=== PATIENT | female | born 1985 | race Caucasian/White ===

== ENCOUNTER 2019-12-30 17:48 | Emergency (ER) | payer OTHER, SELFPAY ==
--- NOTE | ~2019-12-30 | XR_ITS ---
EXAMINATION: XR chest 2V EXAM DATE: 12/30/2019 18:26 INDICATION: Cough for one week. TECHNIQUE: Frontal and lateral projections of the chest obtained and reviewed. Comparison is made to prior examination from 06/09/2018. FINDINGS: Small patchy regions of ill-defined right-sided acute airspace disease, could be acute vir al or bacterial pneumonia. Please clinically correlate. Left lung appears clear. No confluent consoli dation, pneumothorax or pleural effusion suspected. Cardiomediastinal silhouette is normal. IMPRESSION: 1. Patchy small regions of right-sided acute infectious process. Reviewed, dictated and finalized at location A.
[2019-12-30 18:01] VITALS: BP 147/95; PULSE 92; RESP 16; TEMP 36.6; O2SAT 100
--- NOTE | 2019-12-30 18:14 | ED.UPPEXIN ---
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 Has taken [employer] D with little effect. Here for covid test order and evaluation Related Data Home Medications Medication Instructions Recorded Confirmed albuterol sulfate [ProAir 2 inh INHALATION Q4-6H 12/30/19 12/30/19 RespiClick] atorvastatin 10 mg PO DAILY 12/30/19 12/30/19 cholecalciferol (vitamin D3) 325 mcg PO WEEKLY 12/30/19 12/30/19 [Maximum D3] sertraline 100 mg PO DAILY 12/30/19 12/30/19 Allergies Allergy/AdvReac Type Severity Reaction Status Date / Time ciprofloxacin Allergy Severe Anaphylactic Verified 01/31/19 08:35 Shock cefaclor Allergy Unknown Rash Verified 12/30/19 18:14 CIPROFLOXACIN HCL Allergy Severe Anaphylactic Uncoded 01/31/19 08:35 Shock Review of Systems Review of Systems: Narrative: CONSTITUTIONAL: Denies fever, chills, sweats. EYES: Denies visual changes, redness, discharge. ENT: Denies rhinorrhea, has congestion, sore throat, otalgia. CARDIOVASCULAR: Denies chest pain, palpitations, edema. RESPIRATORY: Has mild dyspnea, no wheezing, has cough GASTROINTESTINAL: Denies abdominal pain, nausea, vomiting, diarrhea. GENITOURINARY: Denies dysuria, hematuria, abnormal discharge SKIN: Denies rash or itching. NEUROLOGIC: Denies numbness, or focal weakness. PSYCHIATRIC: Denies anxiety or depression. PMFSH Family History Family History Other High cholesterol Social History Social History (Updated 12/30/19 @ 18:29 by Mary Pena CNP) Smoking status: Never smoker Alcohol intake: current Comments My nurse Exam Narrative: Exam Narrative: GENERAL: This is a well-nourished, well-developed patient, in mild distress. HEAD: normocephalic, atraumatic. EYES: Sclera clear/white. Vision is grossly intact. EARS: External ears normal, Hearing grossly intact. NOSE: External nose normal with nasal discharge, nares with redness, has rhinorrhea. THROAT: Mucous membranes moist, posterior pharynx erythema NECK: Neck supple, CARDIOVASCULAR: Regular rate and rhythm without murmurs, gallops, or rubs. RESPIRATORY: Clear to auscultation. Breath sounds equal bilaterally. No wheezes, rales, or rhonchi. GASTROINTESTINAL: Abdomen soft, SKIN: warm, intact with no suspicious lesions or rash, good texture and turgor. NEURO: awake, alert, and oriented to person, place and time. There were no obvious focal neurologic abnormalities. Steady gait EXTREMITIES: Normal range of motion. BACK: Nontender without deformity Course Course Emergency Course: Chest x-ray done-results patchy small regions of right-sided acute infectious process-may be viral or bacterial Cover test ordered Started on prednisone and cough syrup, continues to have cough at the Patient should not return to work until results are known of her cover test Vital Signs Vital signs: Vital Signs Temperature 97.8 F 12/30/19 18:01 Pulse Rate 92 12/30/19 18:01 Respiratory Rate 16 12/30/19 18:01 Blood Pressure 147/95 H 12/30/19 18:01 Pulse Oximetry 100 12/30/19 18:01 Temperature 97.8 F 12/30/19 18:01 Pulse Rate 92 12/30/19 18:01 Respiratory Rate 16 12/30/19 18:01 Blood Pressure 147/95 H 12/30/19 18:01 Pulse Oximetry 100 12/30/19 18:01 MDM - Extremity Injury (Upper) Differential Diagnosis Differential diagnosis: Likely other (Upper respiratory infection versus COVID versus sinusitis versus seasonal allergies) Critical Care Time Critical Care Time Critical Care Time: No Dis
== END 2019-12-30 18:50 | disposition home or self-care (01) ==
PROVIDERS: Emergency Provider Nurse Practitioner
DX: J06.9 Acute upper respiratory infection, unspecified (principal); Z20.828 Contact with and (suspected) exposure to other viral communicable diseases
CPT/HCPCS: 71046; 99213; G0463

== ENCOUNTER 2024-07-09 14:00 | Emergency (ER) | payer OTHER, SELFPAY ==
--- NOTE | 2024-07-09 14:05 | ED_ITS ---
HPI - Nausea/Vomiting/Diarrhea General Chief complaint: Nausea/Vomiting/Diarrhea Stated complaint: Vomiting/Fever Time Seen by Provider: 07/09/24 14:35 Source: patient and RN notes reviewed Mode of arrival: ambulatory Limitations: no limitations History of Present Illness HPI Narrative: 38-year-old female presents with concern for vomiting and diarrhea. Reports symptoms started yesterday with vomiting, and she did not have vomiting today. She reports she has had diarrhea today. She denies abdominal pain. Reports fever last night and today. MD elicited complaint: nausea, vomiting and diarrhea Related Data Home Medications ?Medication ?Instructions ?Recorded ?Confirmed ?Last Taken ?Type albuterol sulfate 90 mcg/actuation 2 inh inhalation Q4-6H sob 12/30/19 12/30/19 Unknown History breath activated powder inhaler (ProAir RespiClick) atorvastatin 10 mg tablet 10 mg PO DAILY 12/30/19 12/30/19 Unknown History cholecalciferol (vitamin D3) 325 325 mcg PO WEEKLY 12/30/19 12/30/19 Unknown History mcg (13,000 unit) capsule (Maximum D3) sertraline 100 mg tablet 100 mg PO DAILY 12/30/19 12/30/19 Unknown History Allergies Allergy/AdvReac Type Severity Reaction Status Date / Time ciprofloxacin Allergy Severe Anaphylactic Verified 01/31/19 08:35 Shock cefaclor Allergy Unknown Rash Verified 12/30/19 18:14 CIPROFLOXACIN HCL Allergy Severe Anaphylactic Uncoded 01/31/19 08:35 Shock Review of Systems Review of Systems: CONSTITUTIONAL: Reports malaise, chills, fever. ENT: Denies rhinorrhea, congestion, sinus pain, otalgia or sore throat. CARDIOVASCULAR: Denies chest pain, palpitations, or edema. RESPIRATORY: Denies cough or dyspnea. GASTROINTESTINAL: Denies abdominal pain. Reports nausea, vomiting, diarrhea. Denies bloody, or mucous stools. GENITOURINARY: Denies dysuria or hematuria. MUSCULOSKELETAL: Denies myalgia. NEUROLOGIC: Denies headache. All systems reviewed & are unremarkable except as noted in HPI and below PMFSH Family History Family History Other High cholesterol Social History Social History (Updated 12/30/19 @ 18:29 by Mary Pena, PROPERTY INSURANCE CLAIMS EXAMINER) Smoking status: Never smoker Alcohol intake: current Comments At time of signature, agree with nursing past medical, surgical, social and family history. There is no relevant family history pertinent to the presenting complaint Exam Narrative: GENERAL: Well-appearing, well-nourished, and in no acute distress. HEAD: Normocephalic, atraumatic. EYES: PERRLA, conjunctivae clear, and EOMI. ENT: Nares clear, turbinates pink, no rhinorrhea or epistaxis. Mucous membranes moist. Oropharynx without edema, erythema, or lesions. Tonsils not enlarged and without exudate. NECK: Supple. No lymphadenopathy CHEST: Speaks in full sentences. No respiratory distress. HEART: Regular rate and rhythm. ABDOMEN: Soft, flat, nondistended, nontender. No guarding, rebound tenderness, or rigidity. No pulsatile masses. Bowel sounds present in all four quadrants. SKIN: Warm, dry, no rash. NEURO: Alert and oriented x3. PSYCH: Normal mood and affect Course Course Emergency Course: Patient is aware of diagnosis, understands and agrees to treatment plan. Anticipatory guidance given. Patient agrees to follow-up as directed and is a cotto of reasons to seek care at the emergency department. Portions of this record may have been created with voice recognition software Level of Care: Express Care Visit Vital Signs Vital signs: Reviewed. MDM - Nausea/Vomiting/Diarrhea MDM Narrative Medical decision making narrative: No evidence of pancreatitis, AAA, cholecystitis, choledocholithiasis, cholangitis, mesenteric ischemia, small bowel obstruction, diverticulitis, colitis, appendicitis, or pelvic etiology such as ovarian/testicular torsion, TOA, or ectopic . Patient has no history of peptic ulcer, H. pylori, chronic aspirin NSAID or corticosteroid use, chronic alcohol use, no history of inflammatory bowel disease, no history of active abdominal infection or malignancy. Patient has no history of hernia or intra-abdominal surgeries, patient denies absence of flatus, constipation, melena, hematemesis. Patient denies post-prandial pain. No pain-out of proportion. Exam findings show no acute concerns or changes; patient is non-toxic appearing and is in no distress. Patient is appropriate for outpatient treatment and follow-up. Critical Care Time Critical Care Time Critical Care Time: No Discharge Plan Discharge Clinical Impression: Diarrhea Patient Disposition: Home, Self-Care Condition: Stable Instructions: Acute Diarrhea (ED) Additional Instructions: Stay hydrated. Take small sips of fluid containing electrolytes frequently. You should go to the hospital if you experience return of persistent nausea and vomiting that does not resolve and does not allow you to tolerate any food or fluids, persistent fevers for greater than 2-3 more days, increasing abdominal pain that persists despite medications, persistent diarrhea, dizziness, syncope (fainting), or for any other concerns. Patient Language: Greek Prescriptions: New ondansetron 4 mg tablet,disintegrating 4 mg PO Q6H PRN (Reason: nausea and vomiting) Qty: 4 0RF No Action atorvastatin 10 mg tablet 10 mg PO DAILY sertraline 100 mg tablet 100 mg PO DAILY ProAir RespiClick 90 mcg/actuation aerosol powdr breath activated 2 inh INHALATION Q4-6H Maximum D3 325 mcg (13,000 unit) capsule 325 mcg PO WEEKLY prednisone 20 mg tablet 40 mg PO DAILY Qty: 10 0RF codeine-guaifenesin 7.5-225 mg/5 mL liquid 7.5 ml PO Q4-6H PRN (Reason: cough) Qty: 120 0RF azithromycin [Zithromax] 250 mg tablet See Rx Instructions .ROUTE .COMPLEX Qty: 6 0RF Rx Instructions: take 500 mg today (day 1), then 250 mg for 4 days (days 2-5) Follow-up/Referrals: Bushra,Janet Gates APRN [Primary Care Provider] - Stand Alone Forms: Work/School Release IP Time of Disposition: 14:40
[2024-07-09 14:06] VITALS: BP 142/107; PULSE 79; RESP 20; TEMP 35.7; O2SAT 100
--- OUTSIDE RECORDS SUMMARY | 2024-07-09 14:53 | XMS_ITS | Clinical Summary ---
Author Organization [facility] Address [address] [place] [address] Phone Care Team Providers Care Feedmobile Driver Name Role Phone Unavailable Primary Care Provider Unavailabl e Allergies Active Allergy Reactions Criticality Noted Date Comments Cefaclor Other (see Comments) 05/12/2008 Ciprofloxacin Other (see Comments) 05/12/2008 Throat start to close Medications sertraline (ZOLOFT) 100 MG Tablet Take 100 mg by mouth daily. 1 Active atorvastatin (LIPITOR) 10 MG Tablet atorvastatin 10 mg tablet take 1 tablet by oral route every day 0 Active levonorgestrel 20 MCG/24HR IUD Mirena 20 mcg/24 hours (6 yrs) 52 mg intrauterine device Take by intrauterine route. Active Active Problems Problem Noted Date Diagnosed Date Major depressive disorder, r ecurrent episode, mild with anxious distress 03/08/2018 Family History Medical History Relation Name Comments High Cholesterol Father Hypertension Father High Cholesterol Mother Hypertension Mother Relation Name Status Comments Father Mother Alive Social History Tobacco Use Types Packs/Day Years Used Date Smoking Tobacco: Never Smokeless Tobacco: Never Alcohol Use Standard Drinks/Week Comments Yes 0 (1 standard drink = 0.6 oz pur e alcohol) occasional Comments Unknown Sex and Gender Information Value Date Recorded Sex Assigned at Not on file Legal Sex Female 7:52 PM CDT Gender Identity Not on file Sexual Orientation Not on file Last Filed Vital Signs Vital Sign Reading Time Taken Comments Blood Pressure 124/88 06/28/2020 3:12 PM DIRECTOR OF PLANNING Pulse 77 06/28/2020 3:12 PM DIRECTOR OF PLANNING Temperature 37.1 C (98.7 F) 06/28/2020 3:12 PM DIRECTOR OF PLANNING Respiratory Rate 18 06/28/2020 3:12 PM DIRECTOR OF PLANNING Oxygen Saturation 98% 06/28/2020 3:12 PM DIRECTOR OF PLANNING Inhaled Oxygen Concentration - - Weight 127 kg (280 lb) 06/28/2020 3:12 PM DIRECTOR OF PLANNING Height 160 cm (5' 3 ) 06/28/2020 3:12 PM DIRECTOR OF PLANNING Body Mass Index 49.6 06/28/2020 3:12 PM DIRECTOR OF PLANNING Plan of Treatment Health Maintenance Due Date Last Done Comments Hepatitis C Virus (HCV) Screening 1985 Hepatitis B Immunization (1 of 3 - 19+ 3-dose series) 08/17/2006 Pap Smear 08/17/2008 Cervical Cancer Screening (CCS) 08/17/2017 HPV/Cotest 08/17/2017 Influenza Immunization (#1) 01/28/202402/26, 02/14/2019, 03/14/2018 SARS-COV-2 Immunization ( season) 2024 07/16/2020, 06/25/2020 Respiratory Syncytial Virus (RSV) Immunization (Adult) (1 - 1-dose 75+ series) 08/17/2062 DTaP/Tdap/Td Immunization Discontinued 2014, 07/27/2012, 05/29/2012 TdaP Immunization Completed 11/09/2014 Meningococcal Immunization (ACWY) Aged Out No longer eligible based on patient's age to complete this topic Pneumococcal Immunization Combined Aged Out No longer eligible based on patient's age to complete this topic Rotavirus Immunization Aged Out No lo nger eligible based on patient's age to complete this topic Insurance [facility]
--- OUTSIDE RECORDS SUMMARY | 2024-07-09 14:53 | XMS_ITS | Encounter Summary ---
Author Organization [facility] Address [address] [place] [address] Care Team Providers Care Mopper Name Role Phone Unavailable Primary Care Provider Unavailabl e Encounter Details Date Type Department Care Team (Late st Contact Info) Description 11/25/2020 Abstract [facility] Non Integrated Provider [address] [address] [place] [address] Chencho Kaufman MD [address] [place] [address] Social History Tobacco Use Types Packs/Day Years Used Date Smoking Tobacco: Never Smokeless Tobacco: Never Alcohol Use Standard Drinks/Week Comments No 0 (1 standard drink = 0.6 oz pur e alcohol) Comments No Sex and Gender Information Value Date Recorded Sex Assigned at Not on file Legal Sex Female 5:39 AM 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
--- OUTSIDE RECORDS SUMMARY | 2024-07-09 14:53 | XMS_ITS | Clinical Summary ---
Author Organization [facility] Address [address] [place] [address] Care Team Providers Care Leverman Name Role Phone Tam Freedman MD Primary Care Provider Source Comments [facility],non-owned Affiliates and Associated Physician Practices is amultiple site organization consisting of ambulatory clinics and hospital sitesin [place], [place], [place] and [place]. This disclosure is being madepursuant to the Care Everywhere program and may not contain all information available regarding this patient. Last updated 18.[facility] Allergies Active Allergy Reactions Criticality Noted Date Comments Cefaclor 09/21/2016 Ciprofloxacin 09/21/2016 Medications * Be aware that medications may not be up to date on this document. Alwaysverify current medications with the patient. Medication Sig Dispensed Refills Start Date End Date Status sertraline (ZOLOFT) 100 MG tablet Take 100 mg by mouth once daily Active levonorgestrel (MIRENA, 52 MG,) 20 MCG/24HR IUD 1 device by Intrauterine route as directed Active ALBUTEROL IN Active Immunizations Name Administration Dates Next Due Covid [employer] primary monoval ent 12+ yr 0.3mL Purple cap 07/16/2020,06/25/2020 Social History Tobacco Use Types Packs/Day Years Used Date Smoking Tobacco: Never Smokeless Tobacco: Never Sex and Gender Information Value Date Recorded Sex Assigned at Not on file Gender Identity Not on file Sexual Orientation Not on file Last Filed Vital Signs Vital Sign Reading Time Taken Comments Blood Pressure 126/78 09/26/2018 10:31 AM CDT Pulse 78 09/26/2018 10:31 AM CDT Temperature 36.8 C (98.2 F) 09/26/2018 10:31 AM CDT Respiratory Rate 19 09/26/2018 10:31 AM CDT Oxygen Saturation 98% 09/26/2018 10:31 AM CDT Inhaled Oxygen Concentration - - Weight 117.9 kg (260 lb) 09/26/2018 10:31 AM CDT Height 160 cm (5' 3 ) 09/26/2018 10:31 AM CDT Body Mass Index 46.06 09/26/2018 10:31 AM CDT Plan of Treatment Health Maintenance Due Date Last Done Comments PAP SMEAR 1987 HIV SCREENING 08/17/2002 HEPATITIS C SCREENING 08/13/2005 DTAP/TDAP/TD VACCINES (1 - Tdap) 08/17/2006 HEPATITIS B VACCINE (1 of 3 - 19+ 3-dose series) 08/17/2006 COVID-19 VACCINE (3 - 2023-2 5 season) 2024 07/16/2020, 06/25/2020 INFLUENZA VACCINE (#1) 2024 0, 02/14/2019, 02/27/2012 DEPRESSION SCREENING 05/29/2024 ZOSTER VACCINE (1 of 2) 08/17/2037 HIB VACCINE Aged Out No longer eligi ble based on patient's age to complete this topic HPV VACCINE Aged Out No longer eligi ble based on patient's age to complete this topic MENINGOCOCCAL (Group B) VACCINE Aged Out No longer eligible b ased on patient's age to complete this topic MENINGOCOCCAL VACCINE Aged Out No andrea kacie eligible based on patient's age to complete this topic PNEUMOCOCCAL VACCINE Aged Out No long er eligible based on patient's age to complete this topic Care Teams Leverman Relationship Specialty Start Date End Date Tam Freedman MD [address] [place] [address] PCP - General Internal Medicine 09/21/16
--- OUTSIDE RECORDS SUMMARY | 2024-07-09 14:53 | XMS_ITS | Referral Summary ---
Author Organization [facility] Address [address] [place] [address] Care Team Providers Care Software Systems Analyst Name Role Phone Tam Freedman MD Primary Care Provider [phone] Source Comments [facility],non-owned Affiliates and Associated Physician Practices is amultiple site organization consisting of ambulatory clinics and hospital sitesin [place], [place], [place] and [place]. This disclosure is being madepursuant to the Care Everywhere program and may not contain all information available regarding this patient. Last updated 18.[facility] Allergies Active Allergy Reactions Criticality Noted Date [...] Immunizations Name Administration Dates Next Due Covid [employer] primary monoval ent 12+ yr 0.3mL Purple [...] 09/26/2018 10:31 AM CDT Plan of Treatment Not on file Care Teams Software Systems Analyst Relationship Specialty Start Date End Date Tam Freedman MD [address] [place] [address] PCP - General Internal Medicine 09/21/16
--- OUTSIDE RECORDS SUMMARY | 2024-07-09 14:53 | XMS_ITS | Clinical Summary ---
Author Organization [facility] Address [address] [place] [address] Care Team Providers Care Manager Corporate Name Role Phone Unavailable Primary Care Provider Unavailabl e Allergies Active Allergy Reactions Criticality Noted Date Comments Cefaclor Rash Medium 05/12/2008 Ciprofloxacin Other (See Comments) High 05/12/2008 Throat start to close Medications albuterol (PROAIR HFA) 90 mcg/Actuation Inhalation HFAA Take 2 Puffs by inhalation every 6 hours as needed for Shortness of Breath. 1 Inhaler 1 1 Active sertraline (ZOLOFT) 100 mg tablet Take 100 mg by mouth daily at bedtime. Active atorvastatin calcium (ATORVASTATIN ORAL) Take 10 mg by mouth daily. Active cetirizine (ZyrTEC) 10 mg tablet Take 10 mg by mouth daily. Active HYDROcodone-omar taminophen (HYCET) 7.5-325 mg/15 mL SolutionIndicat ions:Morbid obesity (CMS/HCC) Take 15 mL by mouth every 6 hours as needed for severe pain. Max Daily Amount: 60 mL 300 mL 12/22/2020 11:01 AM CDT 1 Active ondansetron (Zofran ODT) 4 mg Tablet, Rapid Dissolve Place 1 Tablet (4 mg) under tongue every 6 hours as needed for Nausea. 28 Tablet 12/22/2020 11:01 AM CDT 1 Active Active Problems Patient Care Coordination No te Formatting of this note migh t be different from the original. Prev visit done 05/27/11 Problem Noted Date Diagnosed Date Adjustment reaction 05/12/2008 Immunizations Immunization Administration Dates Next Due (ADACEL/BOOSTRIX)(10 YR UP) TDAP VACCINE, 0.5ML, IM 07/27/2012,05/29/2012,05/12/2008 (PNEUMOVAX 23)(50 YRS UP) PN EUMOCOCCAL POLYSACCHARIDE (PPV23) 0.5 ML, IM 05/12/2008 INFLUENZA VACCINE QUADRIVALE NT 6 MOS UP PF IM 02/14/2019 Influenza Seasonal Unspecifi ed Formulation IM 03/11/2020,02/27/2012 Skin Test TB 10/13/2008 Family History Medical History Relation Name Comments Depression Father High Cholesterol Father Hypertension Father Depression Mother High Cholesterol Mother Hypertension Mother Relation Name Status Comments Brother Alive Father Alive Mother Alive Sister Alive Social History Tobacco Use Types Packs/Day Years Used Date Smoking Tobacco: Never Smokeless Tobacco: Never Alcohol Use Standard Drinks/Week Comments Yes 0 (1 standard drink = 0.6 oz pur e alcohol) SOCIALLY ON WEEKENDS Comments Unknown Sex and Gender Information Value Date Recorded Sex Assigned at Not on file Legal Sex Female 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 Gender Identity Not on file Sexual Orientation Not on file 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 on file 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 on file 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 Not on file Not on file Not on file Last Filed Vital Signs Vital Sign Reading Time Taken Comments Blood Pressure 156/99 12/22/2020 8:31 AM CDT Pulse 60 12/22/2020 3:30 AM CDT Temperature 37 C (98.6 F) 12/22/2020 8:31 AM CDT Respiratory Rate 18 12/22/2020 8:31 AM CDT Oxygen Saturation 97% 12/22/2020 8:31 AM CDT Inhaled Oxygen Concentration - - Weight 134.9 kg (297 lb 6.4 oz) 12/22/2020 6:00 AM CDT Height 162.6 cm (5' 4 ) 12/21/2020 3:22 PM CDT Body Mass Index 51.05 12/21/2020 3:22 PM CDT Plan of Treatment Health Maintenance Due Date Last Done Comments HEPATITIS B VACCINES (1 of 3 - 19+ 3-dose series) 08/17/2006 CERVICAL CANCER SCREENING 08/17/20172010, 07/28/2007 DTAP/TDAP/TD VACCINES (4 - Td or Tdap) 07/27/2022 07/27/2012, 05/29/2012, 05/12/2008 INFLUENZA VACCINE (#1) 2023 , 02/14/2019, 02/27/2012 COVID-19 Vaccine ( season) 2024 07/16/2020, 06/25/2020 HPV VACCINES Aged Out No longer eligi ble based on patient's age to complete this topic Medical Devices Implanted Type Area Solvent Plant Operator Device Identifier Shelf Expiration Date Model / Serial / Lot Seamguard Endogia 60 [id number] - [id number] Implanted:Qty : 2 on 12/21/2020 by Chencho Kaufman MD at [facility] Biological N/A: Stomach [employer] 07/07/2023 [id number] / / [id number] Seamguard Endogia 60 [id number] [id number] - [id number] Implanted:Qty : 2 on 12/21/2020 by Chencho Kaufman MD at [facility] Biological N/A: Stomach [employer] 08/02/2023 [id number] / / [id number] Iud Description:MIRENA Insurance [facility] PREFERRED RX [employer] Commercial Advance Directives For more information, please contact: [phone] * Full Code (Latest Code Status on File) Date Activated Date Inactivated Comments 12/21/2020 10:47 AM 12/22/2020 4:02 PM
--- OUTSIDE RECORDS SUMMARY | 2024-07-09 14:53 | XMS_ITS | Referral Summary ---
Author Organization [facility] Address [address] [place] [address] Care Team Providers Care Manager Of Compliance Name Role Phone Harrison Chang MD Unavailable [phone]- [phone] Janet Tomlinson NP Primary Care Provider [phone] Encounters Date Type Department Care Team Description 07/05/2024 11:30 AM AUDITING CODER Office Visit [facility] Primary Care at [address] [address] Janet Tomlinson NP Attention deficit (Primary Dx); Class 3 severe obesity due to excess calories with serious comorbidity and body mass index (BMI) of 40.0 to 44.9 in adult (HCC) from Last 3 Months Allergies Active Allergy Reactions Criticality Noted Date Comments Cefaclor Ciprofloxacin Medications levonorgestreL (Mirena) IUD Active levalbuterol (XOPENEX HFA) 45 mcg/actuation inhaler Inhale 1-2 puffs every 6 (six) hours as needed for wheezing 1 each 1 2 Active doxycycline 100 mg tablet TAKE 1 TABLET BY MOUTH DAILY AT DINNER WITH FOOD 4 Active spironolactone (ALDACTONE) 100 mg tablet TAKE 1 TABLET BY MOUTH EVERY DAY FOR ACNE 4 Active atorvastatin (LIPITOR) 10 mg tabletIndications: Other hyperlipidemia Take 1 tablet (10 mg total) by mouth daily 90 tablet 1 4 Active sertraline (ZOLOFT) 100 mg tablet Take 1 tablet (100 mg total) by mouth daily 90 tablet 1 4 Active Maximum D3 325 mcg (13,000 unit) capsule Take 1 capsule by mouth once a week 12 capsule 3 4 Active busPIRone (BUSPAR) 15 mg tablet TAKE 1 TABLET(15 MG) BY MOUTH TWICE DAILY 200 tablet 4 Active buPROPion (WELLBUTRIN) 75 mg tablet Take 1 tablet (75 mg total) by mouth 2 (two) times a day 180 tablet 1 5 Active methylphenidate ER (CONCERTA) 36 mg CR tabletIndications: Attention-Deficit Hyperactivity Disorder Take 1 tablet (36 mg total) by mouth every morning 30 tablet 5 Active phentermine 15 mg capsule Take 1 capsule (15 mg total) by mouth every morning 30 capsule 5 025 Active methylphenidate ER (CONCERTA) 36 mg CR tabletIndications: Attention-Deficit Hyperactivity Disorder Take 1 tablet (36 mg total) by mouth every morning 30 tablet 4 025 Discontin ued(Reord er) Active Problems Problem Noted Date Diagnosed Date Attention deficit 06/06/2023 Assessment & Plan (07/05/2024 11:58 AM AUDITING CODER): Doing well on Concerta 36 mg daily No side effects noted. Assessment & Plan (01/26/2024 11:58 AM CDT): Doing well on Concerta 36 mg daily No side effects noted. Assessment & Plan (07/19/2023 4:00 PM AUDITING CODER): Has noticed improvement on the Concerta, not at goal but reassuring that anxiety and attention have improved. Denies adverse effects. Will increase the Concerta to 36 mg daily. Assessment & Plan (06/06/2023 3:31 PM AUDITING CODER): CAARS screen has been performed, reviewed patient's counselor input and after discussion with patient, will trial Concerta for highly suspected ADD that is contributing to worsening anxiety/depression. Education provided and follow up in 4 weeks. Moderate episode of recurrent major depressive d isorder 02/14/2022 Assessment & Plan (08/26/2022 1:33 PM CDT): Much improvement noted with the addition of Wellbutrin. Able to stay on task better, anxiety vs ADHD. Initial screening positive for possible ADHD, will have pt fill out CAARS screen. However, the Wellbutrin has helped with anxiety and focus so will stay at current dose and medication despite screening score. Assessment & Plan (07/12/2022 4:05 PM AUDITING CODER): Patient concerned she may have ADHD, with increased stressors and anxiety/depression revolving around her current home situation, this could be contributing to decreased concentration/being able to focus on tasks. Discussed ADHD screening and will have patient complete at our follow up. In the meantime, will trial Wellbutrin for overall mood adjunct with her Sertraline and Buspar, can also help with ADHD if present. Assessment & Plan (02/14/2022 4:27 PM CDT): Patient reiterated no suicidal thoughts at this time; take medication as directed; contact 911 and go to the ER if becomes suicidal; discussed side effects of medication with patient; encouraged healthy diet and exericise; encouraged patient to see a counselor HPI: Condition is not at/near goal just from A&P: Discussed/ordered labs, encouraged healthy, low carbohydrate lifestyle and at least 150min/week of exercise, continue on sertraline 100mg daily, Add in buspirone 10mg twice daily. Take in the am and before bed. F/u with Janet Tomlinson NP in [place] in 6-8 wks. Anxiety 02/14/2022 Assessment & Plan (06/06/2023 3:31 PM AUDITING CODER): CAARS screen has been performed, reviewed patient's counselor input and after discussion with patient, will trial Concerta for highly suspected ADD that is contributing to worsening anxiety/depression. Education provided and follow up in 4 weeks. Assessment & Plan (08/26/2022 1:34 PM CDT): Much improvement noted with the addition of Wellbutrin. Able to stay on task better, anxiety vs ADHD. Initial screening positive for possible ADHD, will have pt fill out CAARS screen. However, the Wellbutrin has helped with anxiety and focus so will stay at current dose and medication despite screening score. Assessment & Plan (07/12/2022 4:06 PM AUDITING CODER): Patient concerned she may have ADHD, with increased stressors and anxiety/depression revolving around her current home situation, this could be contributing to decreased concentration/being able to focus on tasks. Discussed ADHD screening and will have patient complete at our follow up. In the meantime, will trial Wellbutrin for overall mood adjunct with her Sertraline and Buspar, can also help with ADHD if present. Assessment & Plan (03/30/2022 11:53 PM CDT): Has improved, not at goal though. Will increase Buspar to 15 mg BID, re-evaluate in 4 weeks, sooner if needed. Assessment & Plan (02/14/2022 4:27 PM CDT): Patient reiterated no suicidal thoughts at this time; take medication as directed; contact 911 and go to the ER if becomes suicidal; discussed side effects of medication with patient; encouraged healthy diet and exericise; encouraged patient to see a counselor HPI: Condition is not at/near goal just from A&P: Discussed/ordered labs, encouraged healthy, low carbohydrate lifestyle and at least 150min/week of exercise, continue on sertraline 100mg daily, Add in buspirone 10mg twice daily. Take in the am and before bed. F/u with Janet Tomlinson NP in [place] in 6-8 wks. Vitamin D deficiency 03/29/2019 Assessment & Plan (06/21/2019 11:22 AM AUDITING CODER): Discussed/ordered labs, Condition is stable, encouraged healthy, low carbohydrate lifestyle and at least 150min/week of exercise, continue on cholecalciferol 10,000 units weekly Anal high risk human papillomavirus (HPV) DNA te st positive 03/13/2019 Overview (07/05/2024): Anal high risk human papillomavirus (HPV) DNA test positive;Recorded Elsewhere: No Location: [facility] Source: EHR Chronic: N Practice ID: [id number] Billable Time: 09:45:09 AM Other hyperlipidemia 02/14/2019 Assessment & Plan (01/26/2024 11:59 AM CDT): Continues Atorvastatin 10 mg daily, no side effects reported. Updated labs ordered. Assessment & Plan (06/06/2023 3:32 PM AUDITING CODER): Continues Atorvastatin 10 mg daily, no side effects reported. Updated labs ordered. Assessment & Plan (06/21/2019 11:36 AM AUDITING CODER): Discussed/ordered labs, Condition is improving, encouraged healthy, low carbohydrate lifestyle and at least 150min/week of exercise, continue on atorvastatin 10mg daily Assessment & Plan (02/14/2019 9:14 AM CDT): Patient stated she has had high cholesterol since age 20. She hasnt taken anything since 2013. Pt had labs drawn yesterday from Dr. Chang, we will see if they can add lipid panel. They were unable to add lab, pt to have lab drawn today. Class 3 severe obesity due t o excess calories with serious comorbidity and body mass index (BMI) of 40.0 to 44.9 in adult 02/14/2019 Assessment & Plan (07/05/2024 11:59 AM AUDITING CODER): Patient interested in Phentermine. Discussed we can do this but have to monitor for symptoms with the Concerta on board. Education provided, pt will update me in 1 month with BP/pulse, etc. Starting 15 mg. Assessment & Plan (08/26/2022 1:34 PM CDT): Has lost weight since previous visit Healthy, low carbohydrate lifestyle and exercise for 150min/week recommended Assessment & Plan (07/12/2022 4:06 PM AUDITING CODER): Healthy, low carbohydrate lifestyle and exercise for 150min/week recommended Assessment & Plan (03/30/2022 11:52 PM CDT): Patient had gastric sleeve with Dr. Kaufman 01/2021, down ~100 lbs. Had labs done per Dr. Kaufman 4 months ago and were all stable. Will get labs in a few months from now. Healthy, low carbohydrate lifestyle and exercise for 150min/week recommended Assessment & Plan (02/14/2022 4:27 PM CDT): HPI: Condition is improving goal BMI <30 Down 92 pounds A&P: Healthy, high-protein, lower carbohydrate, lower fat lifestyle and exercise for 150min/week recommended Recommend tracking everything you put in your mouth on an lucille like mig33 Lower carb substitutions: [employer] carries a zero net carb bread If you are looking for whole potatoes, like to use in soup or new potato shape/flavor, radishes are a great replacement If you are looking for mashed potatoes, riced cauliflower in the frozen bag section are a great replacement For pasta, try using zucchini noodles, lay them out on a cookie sheet and pat dry with a tea towel to try to remove as much moisture as possible. Heat your pasta sauce on the stove and put the noodles in for 30-45 seconds. If you leave them in much longer they will become mushy [place] and/or coconut flour instead of regular flour For pizza dough, try fathead pizza dough recipe online. To get a crispy crust, bake on one side for 8-12 min, then flip over and bake on the other side for 8-12 min, then put toppings on and bake until the cheese on top of pizza melts chaffles recipe online For ice cream, try the brand Enlightened To replace coffee creamer and make it low carb, use heavy creamer with sugar free Torani sweetener For chips, try Whisps or pork rinds For yogurt, try Two Good uzbek yogurt Use Alee for recipe ideas. Type in low carb... Hand Measurements: A fist or cupped hand = 1 cup 1 cup = 1 -2 servings of fruit juice 1 oz. of cold cereal 2 oz. of cooked cereal, rice or pasta 8 oz. of milk or yogurt A thumb = 1 oz. of cheese Consuming low-fat cheese helps you meet the required servings from the milk, yogurt and cheese group. 1 oz. of low-fat cheese counts as 8 oz. of milk or yogurt. Handful = 1-2 oz. of snack food Thumb tip = 1 teaspoon Keep high-fat foods, such as peanut butter and mayonnaise, at a minimum. One teaspoon is equal to the end of your thumb, from the knuckle up. Three teaspoons equals 1 tablespoon. Palm = 3 oz. of meat Choose lean poultry, fish, shellfish and beef. One palm size portion equals 3 oz. for an adult and 1 -2 oz. for a child under 5. 1 tennis ball or a fist= 1/2 cup of fruit and vegetables Healthy diets include a variety of colorful fruits and vegetables every day. The secret to serving size is in your hand. Snacking can add up. Remember, 1 handful equals 1 oz. of nuts and small candies. For chips and pretzels, 2 handfuls equals 1 oz. Because hand sizes vary, compare your fist size to an actual measuring cup. Assessment & Plan (12/23/2020 4:19 PM CDT): HPI: Condition is improving, but not at goal goal BMI <30 A&P: Healthy, high-protein, lower carbohydrate, lower fat lifestyle and exercise for 150min/week recommended Follow the bariatric diet as instructed. Keep f/u appointments with Dr. Kaufman's office Has f/u appointment with Dr. Kaufman next week. Not having excessive chills/fever/no redness at site. Assessment & Plan (11/27/2020 8:46 AM CDT): Patient seeing Dr. Kaufman at [facility] for gastric sleeve procedure. Here today for medical clearance. Pre-op testing ordered, form with orders from Dr. Kaufman provided. EKG in office today. Contingent on lab review, patient appears to be a good candidate for surgery with low risk for complication due to anesthesia. Revised cardiac risk index zero points, 3.9% 30 day risk. Assessment & Plan (11/06/2020 3:45 PM CDT): Pt seeing Dr. Kaufman at [facility] [phone]. Having gastric sleeve done. Here today for medical clearance. Pt having all preop testing done by their office. If there is any abnormal findings, they refer back to our office for further clearance. Pt has never had previous surgery with anesthesia. Pt has never been told he/she has a small or difficult airway to intubate. Pt appears to be a good candidate for surgery with low risk for complication due to anesthesia. Revised cardiac risk index zero points, 3.9% 30 day risk. Pt is cleared for surgery. Assessment & Plan (06/21/2019 12:15 PM AUDITING CODER): Healthy, low carbohydrate lifestyle and exercise for 150min/week recommended Recommend referral to manager of training and development, keep food log on mig33, spent 30 min discussing low carb, exercise and mindset. Assessment & Plan (04/18/2019 7:28 AM AUDITING CODER): Healthy, low carbohydrate diet and exercise for 150min/week recommended Assessment & Plan (02/14/2019 9:16 AM CDT): Healthy, low carbohydrate diet and exercise for 150min/week recommended Mastitis, 03/24/2015 Overview (07/05/2024): Nonpurulent mastitis associated with the puerperium;Practice ID: 0001 Carbuncle of trunk 01/12/2015 Overview (07/05/2024): CARBUNCLE OF TRUNK;Practice ID: 0001 Excessive growth affecting management of m other 11/11/2014 Overview (07/05/2024): GROWTH LARGE LGA;Practice ID: 0001 Bronchial asthma 10/03/2014 Assessment & Plan (06/21/2019 11:35 AM AUDITING CODER): Discussed/ordered labs, Condition is stable, encouraged healthy, low carbohydrate lifestyle and at least 150min/week of exercise, continue on albuterol sulfate as needed. Please consider the albuterol as a rescue only medication. If needing the albuterol more than 2xwk, please contact office. Assessment & Plan (04/18/2019 7:29 AM AUDITING CODER): Discussed with patient/parent that asthma appears to be well controlled at this time but to monitor for changes in breathing/wheezing symptoms as allergies/cold symptoms can cause an asthma flare. Contact office if pt begins with concerning asthma symptoms Assessment & Plan (02/14/2019 9:16 AM CDT): Discussed labs, Condition is stable, encouraged healthy, low carbohydrate diet and at least 150min/week of exercise, continue on albuterol as needed. Discussed with patient that this is a rescue medication only. If needing it more than 2xwk, please contact office. Mild hyperemesis gravidarum, antepartum 06/05/19 15 Overview (07/05/2024): Hyperemesis gravidarum, antepartum Mild;Practice ID: 0001 Nausea and vomiting 06/05/2014 Overview (07/05/2024): Nausea with vomiting;Practice ID: 0001 Amenorrhea 05/29/2014 Overview (07/05/2024): AMENORRHEA;Practice ID: 0001 Carbuncle of skin and/or subcutaneous tissue 09/2012 Overview (07/05/2024): Carbuncle and furuncle of unspecified site;Practice ID: 0001 Delivery normal 08/14/2012 Overview (07/05/2024): Normal delivery;Practice ID: 0001 Oligohydramnios with problem 3 Overview (07/05/2024): Oligohydramnios, antepartum;Recorded Elsewhere: No Location: [facility] Source: EHR Chronic: N Practice ID: [id number] Billable Time: 08:45:00 AM Hypertension during in third trimester 08/06/2012 Overview (07/05/2024): Hypertension During ;Practice ID: 0001 Antepartum transient hypertension 08/02/2012 Overview (07/05/2024): Antepartum transient hypertension;Practice ID: 0001 Proteinuria 07/19/2012 Overview (07/05/2024): Proteinuria;Practice ID: 0001 Resolved Problems Problem Noted Date Diagnosed Date Resolved Date Elevated liver enzymes 02/14/201906/21 Overview (02/14/2019): liver ultrasound ordered History of obstetric problem 10/03/2014 02/14/2019 History of delivery 10/03/2014 02/14/2019 Urinary tract infection in m other during 10/03/2014 02/14/2019 Immunizations Name Administration Dates Next Due DTaP 5 Pertussis 07/27/2012, 3,05/29/2012,05/29 Influenza, Quadrivalent, Kylah l Culture-based MDCK, Preservative Free, Antibiotic Free, Intramuscular 03/11/2020 Influenza, Quadrivalent, Spl it, Preservative Free, Intramuscular 02/03/2023,02/14/2022,04/15/2021,02/14 Influenza, Trivalent, IM (MDV) 03/11/2020 Influenza, Unspecified 04/28/2021(Deferr ed: Patient Refused),03/11/2020 Pfizer SARS-CoV-2 Monovalent Vaccination (12+ Yrs) PURPLE 07/16/2020,06/25/2020 Pneumococcal Conjugate Pcv20 02/14/2022 Tdap 07/27/2012,05/29/2012 Social History Tobacco Use Types Packs/Day Years Used Date Smoking Tobacco: Never Passive Smoke Exposure: Never Smokeless Tobacco: Never Tobacco Cessation:Counseling Given: Not Answered Alcohol Use Standard Drinks/Week Comments Not Currently 0 (1 standard drink = 0.6 oz pur e alcohol) PHQ-2 Answer Date Recorded PHQ-2 Total Score (If total score is 3 or more points, staff should administer the PHQ-9) 0 07/05/2024 Comments No Sex and Gender Information Value Date Recorded Sex Assigned at Not on file Legal Sex Female 5:34 AM AUDITING CODER Gender Identity Not on file Sexual Orientation Not on file Last Filed Vital Signs Vital Sign Reading Time Taken Comments Blood Pressure 118/82 07/05/2024 11:34 AM AUDITING CODER Pulse 74 07/05/2024 11:34 AM AUDITING CODER Temperature 36.8 C (98.2 F) 07/05/2024 11:34 AM AUDITING CODER Respiratory Rate 18 06/06/2023 3:00 PM AUDITING CODER Oxygen Saturation 99% 07/05/2024 11:34 AM AUDITING CODER Inhaled Oxygen Concentration - - Weight 102.5 kg (226 lb) 07/05/2024 11:34 AM AUDITING CODER Height 160 cm (5' 3 ) 07/05/2024 11:34 AM AUDITING CODER Body Mass Index 40.03 07/05/2024 11:34 AM AUDITING CODER Plan of Treatment Not on file Procedures Procedure Name Priority Date/Time Associated Diagnosis Comments PAP SMEAR WITH HPV Routine 03/11/2019 HEPATITIS PANEL, ACUTE Routine 02/13/2019 11:45 AM CDT Fever, unspecified fever cause from Last 3 Months or Most Recently Relevant to Health Maintenance Results * PAP SMEAR WITH HPV (03/11/2019) Pathologist [facility] Pap smear Normal Comment:Report in chart Historical Provider HEALTH MAINTENANCE Final Result * Hepatitis panel, acute (02/13/2019 11:45 AM CDT) [facility] Hep A IgM Non-Reactive Non-Reactive CERNER PW Comment:Testing performed by : [facility], [address] [place] [address]., [id number] Hep B core IgM Non-Reactive Non-Reactive CERNER PW Comment:Testing performed by : [facility], [address] [place] [address]., [id number] Hep C Ab Non-Reactive Non-Reactive CERNER PW Comment:Testing performed by : [facility], [address] [place] [address]., [id number] HepBsAg Nonreactive Nonreactive [facility] PW Comment:Testing performed by : [facility], [address] [place] [address]., [id number] Blood specimen (specimen) 02/13/2019 11:45 AM CDT 02/13/2019 3:48 PM CDT Harrison Chang MD LAB MICROBIOLOGY - G ENERAL ORDERABLES Final Result [facility] [address] [place] [id number] from Last 3 Months or Most Recently Relevant to Health Maintenance Insurance [place] [employer] PRF [place] ACC[facility] HMO [facility] HMO Care Teams Manager Of Compliance Relationship Specialty Start Date End Date Janet Tomlinson NP PCP - General Family Medicine 04/02/22 Harrison Chang MD Consulting Physician Infectious Diseases 02/14/19
--- OUTSIDE RECORDS SUMMARY | 2024-07-09 14:53 | XMS_ITS | Clinical Summary ---
Author Organization [facility] Address [address] [place] [address] Care Team Providers Care Obstetrical Tech Name Role Phone Harrison Chang MD Unavailable [phone] Janet Tomlinson NP Primary Care Provider [phone] Allergies Active Allergy Reactions Criticality Noted Date [...] 06/06/2023 Assessment & Plan (07/05/2024 11:58 AM TELEPHONIC NURSE): Doing well on Concerta 36 mg daily No side effects noted. Assessment & Plan (01/26/2024 11:58 AM CDT): Doing well on Concerta 36 mg daily No side effects noted. Assessment & Plan (07/19/2023 4:00 PM TELEPHONIC NURSE): Has noticed improvement on the Concerta, not at goal but reassuring that anxiety and attention have improved. Denies adverse effects. Will increase the Concerta to 36 mg daily. Assessment & Plan (06/06/2023 3:31 PM TELEPHONIC NURSE): CAARS screen has been performed, reviewed patient's [...] score. Assessment & Plan (07/12/2022 4:05 PM TELEPHONIC NURSE): Patient concerned she may have ADHD, with [...] bed. F/u with Janet Tomlinson NP in [place] in 6-8 wks. Anxiety 02/14/2022 Assessment & Plan (06/06/2023 3:31 PM TELEPHONIC NURSE): CAARS screen has been performed, reviewed patient's [...] score. Assessment & Plan (07/12/2022 4:06 PM TELEPHONIC NURSE): Patient concerned she may have ADHD, with [...] bed. F/u with Janet Tomlinson NP in [place] in 6-8 wks. Vitamin D deficiency 03/29/2019 Assessment & Plan (06/21/2019 11:22 AM TELEPHONIC NURSE): Discussed/ordered labs, Condition is stable, encouraged healthy, low carbohydrate lifestyle and at least 150min/week of exercise, continue on cholecalciferol 10,000 units weekly Anal high risk human papillomavirus (HPV) DNA te st positive 03/13/2019 Overview (07/05/2024): Anal high risk human papillomavirus (HPV) DNA test positive;Recorded Elsewhere: No Location: [facility] Source: EHR Chronic: N Practice ID: [id number] Billable Time: 09:45:09 AM Other hyperlipidemia 02/14/2019 Assessment & Plan (01/26/2024 11:59 AM CDT): Continues Atorvastatin 10 mg daily, no side effects reported. Updated labs ordered. Assessment & Plan (06/06/2023 3:32 PM TELEPHONIC NURSE): Continues Atorvastatin 10 mg daily, no side effects reported. Updated labs ordered. Assessment & Plan (06/21/2019 11:36 AM TELEPHONIC NURSE): Discussed/ordered labs, Condition is improving, encouraged healthy, [...] 02/14/2019 Assessment & Plan (07/05/2024 11:59 AM TELEPHONIC NURSE): Patient interested in Phentermine. Discussed we can do this but have to monitor for symptoms with the Concerta on board. Education provided, pt will update me in 1 month with BP/pulse, etc. Starting 15 mg. Assessment & Plan (08/26/2022 1:34 PM CDT): Has lost weight since previous visit Healthy, low carbohydrate lifestyle and exercise for 150min/week recommended Assessment & Plan (07/12/2022 4:06 PM TELEPHONIC NURSE): Healthy, low carbohydrate lifestyle and exercise for [...] in your mouth on an lucille like [place] Lower carb substitutions: Tom carries a zero net carb bread If [...] in much longer they will become mushy Ackley and/or coconut flour instead of regular flour [...] pork rinds For yogurt, try Two Good prydeinig yogurt Use Alee for recipe ideas. Type [...] AM CDT): Patient seeing Dr. Kaufman at [facility] for gastric sleeve procedure. Here today for [...] PM CDT): Pt seeing Dr. Kaufman at [facility] [phone]. Having gastric sleeve done. Here today for [...] surgery. Assessment & Plan (06/21/2019 12:15 PM TELEPHONIC NURSE): Healthy, low carbohydrate lifestyle and exercise for 150min/week recommended Recommend referral to [facility], keep food log on [place], spent 30 min discussing low carb, exercise and mindset. Assessment & Plan (04/18/2019 7:28 AM TELEPHONIC NURSE): Healthy, low carbohydrate diet and exercise for [...] 10/03/2014 Assessment & Plan (06/21/2019 11:35 AM TELEPHONIC NURSE): Discussed/ordered labs, Condition is stable, encouraged healthy, low carbohydrate lifestyle and at least 150min/week of exercise, continue on albuterol sulfate as needed. Please consider the albuterol as a rescue only medication. If needing the albuterol more than 2xwk, please contact office. Assessment & Plan (04/18/2019 7:29 AM TELEPHONIC NURSE): Discussed with patient/parent that asthma appears to [...] Overview (07/05/2024): Oligohydramnios, antepartum;Recorded Elsewhere: No Location: [facility] Source: EHR Chronic: N Practice ID: [id number] [...] infection in m other during 10/03/2014 02/14/2019 Encounters Date Type Department Care Team Description 07/05/2024 11:30 AM TELEPHONIC NURSE Office Visit [facility] Primary Care at [address] [address] Janet Tomlinson, CLAUDE Attention deficit (Primary Dx); Class 3 severe obesity due to excess calories with serious comorbidity and body mass index (BMI) of 40.0 to 44.9 in adult (HCC) from Last 3 Months Immunizations Name Administration Dates Next Due DTaP 5 Pertussis 07/27/2012, 3,05/29/2012,05/29 Influenza, Quadrivalent, Kylah l Culture-based MDCK, Preservative Free, Antibiotic Free, Intramuscular 03/11/2020 Influenza, Quadrivalent, Spl it, Preservative Free, Intramuscular 02/03/2023,02/14/2022,04/15/2021,02/14 Influenza, Trivalent, IM (MDV) 03/11/2020 Influenza, Unspecified 04/28/2021(Deferr ed: Patient Refused),03/11/2020 Pfizer SARS-CoV-2 Monovalent Vaccination (12+ Yrs) PURPLE 07/16/2020,06/25/2020 Pneumococcal Conjugate Pcv20 02/14/2022 Tdap 07/27/2012,05/29/2012 Surgical History Surgery Date Site/Laterality Comments BARIATRIC SURGERY 7 07 04-2020 Medical History Medical History Date Comments Depression Asthma Allergic History of delivery 10/03/2014 History of obstetric problem 10/03/2014 Anxiety Family History Medical History Relation Name Comments Blood Clot Father Barry Otero Hyperlipidemia Father Barry Otero Hypertension Father Barry Otero Hyperlipidemia Mother Nanette Otero Hypertension Mother Nanette Otero Autoimmune disease Sister 1 No Known Problems Sister 2 Relation Name Status Comments Brother Alive half Father Barry Otero Boader line d iabeties Mother Nanette Otero Alive Sister 1 Alive Half sister Sister 2 Alive Half Social History Tobacco Use Types Packs/Day Years [...] on file Legal Sex Female 5:34 AM TELEPHONIC NURSE Gender Identity Not on file Sexual Orientation Not on file Obstetrics History Last Filed Vital Signs Vital Sign Reading Time Taken Comments Blood Pressure 118/82 07/05/2024 11:34 AM TELEPHONIC NURSE Pulse 74 07/05/2024 11:34 AM TELEPHONIC NURSE Temperature 36.8 C (98.2 F) 07/05/2024 11:34 AM TELEPHONIC NURSE Respiratory Rate 18 06/06/2023 3:00 PM TELEPHONIC NURSE Oxygen Saturation 99% 07/05/2024 11:34 AM TELEPHONIC NURSE Inhaled Oxygen Concentration - - Weight 102.5 kg (226 lb) 07/05/2024 11:34 AM TELEPHONIC NURSE Height 160 cm (5' 3 ) 07/05/2024 11:34 AM TELEPHONIC NURSE Body Mass Index 40.03 07/05/2024 11:34 AM TELEPHONIC NURSE Plan of Treatment Health Maintenance Due Date Last Done Comments Hepatitis B Screening 08/17/2005 DTaP/Tdap/Td Vaccine (7 - Td or Tdap) 07/27/2022 07/27/2012, 07/27/2012, 07/27/2012, Additional history exists Covid-19 Vaccine ( season) 2024 07/16/2020, 06/25/2020 Influenza Vaccine (#1) 2024 , 02/14/2022, 04/15/2021, Additional history exists Cervical Cancer Screening 10/25/20242023, 03/11/2019, 02/02/2018 Regular Well Visit/Exam 18-64 01/25/2025 01/26/2024 Depression Screening 07/05/2025 07/05/2024, 01/26/2024, 07/19/2023, Additional history exists Hepatitis C Screening Completed 02/13/2019 Pneumococcal vaccine <65 Completed 02/14/2022 HPV Vaccines Aged Out No longer eligi ble based on patient's age to complete this topic Varicella Vaccines Discontinued Procedures Procedure Name Priority Date/Time Associated Diagnosis Comments PAP SMEAR WITH HPV Routine 03/11/2019 HEPATITIS PANEL, ACUTE Routine 02/13/2019 11:45 AM CDT Fever, unspecified fever cause from Last 3 Months or Most Recently Relevant to Health Maintenance Results * PAP SMEAR WITH HPV (03/11/2019) HM Pap smear Normal Comment:Report in chart Historical Provider HEALTH MAINTENANCE Final Result * Hepatitis panel, acute (02/13/2019 11:45 AM CDT) Hep A IgM Non-Reactive Non-Reactive [facility] PW Comment:Testing performed by : [facility], [address] [place] [address]., [id number] Hep B core IgM Non-Reactive Non-Reactive [facility] PW Comment:Testing performed by : [facility], [address] [place] [address]., [id number] Hep C Ab Non-Reactive Non-Reactive [facility] Comment:Testing performed by : [facility], [address] [place] [address]., [id number] HepBsAg Nonreactive Nonreactive [facility] PW Comment:Testing performed by : [facility], [address] [place] [address]., [id number] Blood specimen (specimen) 02/13/2019 11:45 AM CDT 02/13/2019 3:48 PM CDT Harrison Chang MD LAB MICROBIOLOGY - G ENERAL ORDERABLES Final Result [facility] [address] [place] [address] from Last 3 Months or Most Recently Relevant to Health Maintenance Insurance CHO[place] [facility] [facility] [employer] [facility] H[facility] Care Teams Obstetrical Tech Relationship Specialty Start Date End Date Janet Tomlinson NP PCP - General Family Medicine 04/02/22 Harrison Chang MD Consulting Physician Infectious Diseases 02/14/19
--- OUTSIDE RECORDS SUMMARY | 2024-07-09 14:53 | XMS_ITS | Patient Health Summary ---
Author Organization [facility] Address [address] [place] [address] Care Team Providers Care Mechanical Assembly Name Role Phone Tam Freedman MD Primary Care Provider Note from [facility],non-owned Affiliates and Associated Physician Practices is amultiple site organization consisting of ambulatory clinics and hospital sitesin [place], [place], [place] and [place]. This disclosure is being madepursuant to the Care Everywhere program and may not contain all information available regarding this patient. Last updated 18.[facility] Allergies * Cefaclor * Ciprofloxacin Medications * Be aware that medications may not be up to date on this document. Alwaysverify current medications with the patient. * sertraline (ZOLOFT) 100 MG tablet Take 100 mg by mouth once daily * levonorgestrel (MIRENA, 52 MG,) 20 MCG/24HR IUD 1 device by Intrauterine route as directed * ALBUTEROL IN Immunizations * Covid Pfizer primary monovalent 12+ yr 0.3mL Purple cap(Given 07/16/2020, 06/25/2020) Social History Tobacco Use Types Packs/Day Years [...] Mass Index 46.06 09/26/2018 10:31 AM CDT Procedures * CULTURE THROAT(Performed 09/26/2018) Performed for Acute pharyngitis, unspecified etiology * STREP A SCREEN - POINT OF CARE (AMB) STL(Performed 09/26/2018) Performed for Acute pharyngitis, unspecified etiology * STREP A SCREEN - POINT OF CARE (AMB) STL(Performed 09/21/2016) Performed for Strep throat Results * [facility] Throat Culture (09/26/2018 10:43 AM CDT) Culture [facility] Comment: CULTURE, THROAT MICRO NUMBER: [id number] TEST STATUS: FINAL SPECIMEN SOURCE: THROAT SPECIMEN QUALITY: ADEQUATE RESULT: No oropharyngeal pathogens recovered. Test Performed at: [facility] [address] ELISEO VELARDE MD Microbiology ENTIRE THROAT (SURFACE REGION OF NECK) / Unknown 09/26/2018 10:43 AM CDT 09/26/2018 11:26 PM CDT Gisella Camacho APRN-[facility] - MICROBIOLOG Y ORDERABLES [address] [address] * STREP A SCREEN (09/26/2018) Only the most recent of2 resultswithin the time period is included. Strep A Rapid POCT Negative Negative Strep A Internal Control Present Lot # [id number] Expiration Date 03/28/20 Throat ENTIRE THROAT (SURFACE REGION OF NECK) / Unknown 09/26/2018 Gisella Camacho RECONCILIATION MACHINE OPERATOR-[facility] - POINT OF CA RE ORDERABLES Care Teams Mechanical Assembly Relationship Specialty Start Date End Date Tam Freedman [place] [address] PCP - General Internal Medicine 09/21/16
--- OUTSIDE RECORDS SUMMARY | 2024-07-09 14:56 | XMS_ITS | Data Portability ---
Author Organization [facility] [place] Address [address] [place] [address] [place] [address] Assessment Encounter Date Assessment Date Assessment LastModified by Organization Details LastModified Time 03/27/2020 03/27/2020 Annual gynecological exam performed. Patient will come back in a year unless there are new symptoms. [email or web address] Not available 03/27/2020 12:13:55 04/02/2021 04/02/2021 Annual gynecological exam performed. Patient will come back in a year unless there are new symptoms. Not available 04/02/2021 10:15:38 04/14/2021 04/14/2021 f/u pending pathology, start pnv [email or web address] Not available 04/14/2021 13:31:32 Plan of Treatment Reminders Order Date Submit Date Provider Last Modified By Organization Details Last Modified Time Details Appointments None recorded. Lab None recorded. Referral None recorded. Procedures None recorded. Surgeries None recorded. Imaging None recorded. Medication Orders Zoloft 100 mg tablet 2019 020 [facility][id number], [address], [place], [place], [id number], 0 12:50:04 sertraline 100 mg tablet 2020 021 [place] [facility] #[id number], [address], [place], [place], [id number], 1 10:42:53 Patient TargetsNo targets recorded. Patient Instructions Encounter Date Encounter Id Patient Instructions Last Modified By Organization Details Last Modified Time 03/27/2020 [id number] [email or web address] Not available 12:21:32 Reason for Referral None Reported. Results Created Date Observation Date Name Description Value Unit Range Abnormal Flag Note LastModifiedBy Organization Detail LastModifiedTime 03/27/20 20 03/31/2020 pap, LB Pap test thin prep Negati ve for Intrae pithel ial Lesion or Malign regan normal ACCES CLARISA #: [id number] Sourc e: Cervi jackson/E ndoce rvica l LMP: 10/15 Date Taken : 03/27 Speci men Type: ThinP rep Vial Date Repor kathy: 2019 Clini jackson Data: Cytot ech: Rahul santiago , CT( CP) Date Repor kathy: 2019 Revie wed By: YANNICK Quintanilla( CP) Speci men Adequ acy: Satis facto ry for evalu ation Endoc ervic al/tr ansfo rmati on zone compo nent prese nt Gener al Categ oriza tion: NEGAT SINDY FOR INTRA EPITH ELIAL LESIO N OR MALIG MARYBETH The follo wing tests have been order ed as reque sted and a separ ate repor t will be issue d: Chlam ydia, Gonor rhoea e, and Trich omona s This speci men has been amaya zed by the ThinP rep Imagi ng Syste m, an inter activ e compu ter syste m which shayy ts the lab in the scree toby of ThinP rep Pap Test slide s. Follo wing imagi ng, the slide was revie wed by a Cytot echno logis t and/o r Patho logis t. D N A A S S A Y S R E P O R T TEST NAME RESUL TS ----- ---- ----- -- HPV High Risk Scree n (TMA) ThinP rep Vial The human papil lomav irus (HPV) High Risk Scree n is an FDA-a pprov ed in-vi tro ampli fied nucle ic acid test for the quali tativ e detec tion of E6/E7 viral mRNA. Resul ts shoul d be corre lated with patie nt prese ntati on, histo ry, cervi jackson cytol ogy and other clini jackson and labor atory findi ngs. See https ://[employer]/s ites/ defau lt/fi 2 018-0 3- 20980 _002_ .pd f for furth er infor matio n. Test perfo rmed by [facility], d/b/a [employer], [address], [facility] [place] [address] , Mckay Warren ra, DO, Labor atory [facility]. HPV High Risk *HPV DETEC KATHY (TYPE S 16, 18, 31, 33, 35, 39, 45, 51, 52, 56, 58, 59, 66, 68) HPV Genot ype (TMA) ThinP rep Vial The human papil lomav irus (HPV) Genot ype test is an FDA-a pprov ed in-vi tro diagn ostic ampli fied nucle ic acid test for the quali tativ e detec tion of E6/E7 viral mRNA of indep enden t HPV types 16 and 18/45 in cervi jackson speci mens. See https ://[employer]/s ites/ defau lt/fi 018-0 2- 52527 _002_ .pd f for furth er infor matio n. HPV Type 16 *HPVG NOT DETEC KATHY HPV Type 18/45 *HPVG NOT DETEC KATHY *HPV: The human papil lomav irus (HPV) High Risk Scree n is an FDA-a pprov ed in-vi tro ampli fied nucle ic acid test for the quali tativ e detec tion of E6/E7 viral mRNA. Tsering lee corre lated with pablito carrera prese ntati on, histo ry, cervi jackson cytol ogy and other clini jackson and labor atory findi ngs. See https ://[employer]/s ites/ defau lt/fi 2 018-0 3/AW- 88708 _002_ .pd f for furth er infor matio n. Test perfo rmed by [facility], d/b/a [employer], [address], [place] [address] , Mckay Warren ra, DO, Labor ator [facility]. *HPVG : The human papil lomav irus (HPV) Genot ype test is an FDA-a pprov ed in-vi tro diagn ostic ampli fied nucle ic acid test for the quali tativ e detec tion of E6/E7 viral mRNA of indep enden t HPV types 16 and 18/45 in cervi jackson speci mens. See https ://[employer]/s ites/ defidalia lt/fi les/2 018-0 2/AW- 47893 _002_ 01.pd f for jae lugo. End of Repor t Techn ical servi car provi ded by [facility], d/b/a [employer], [address] [place] [address] Andrea Waters MD, [facility]. Case revie wed and diagn osis rende red at [facility], d/b/a [employer], [address] [place] [address] Andrea Waters MD, [facility]. CONFI DENTI AL Not Available [facility] ([facility]) [address], [place], [address], 03/31/2020 20:28:59 03/27/20 20 03/30/2020 HPV DNA, genot ypes 16+18 , genit al HPV type 16 NOT DETECT ED normal The human papil lomav irus (HPV) Genot ype test is an FDA-a pprov ed in-vi tro diagn ostic ampli fied nucle ic acid test for the quali tativ e detec tion of E6/E7 viral mRNA of indep enden t HPV types 16 and 18/45 in cervi jackson speci mens. See https ://Kalt[employer]/s ites/ defau lt/fi les/2 018-0 2/- 56967 _002_ 01.pd f for [facility] daryn tejeda n. Not Available [facility] ([facility]) [address], [place], [address], 03/31/2020 20:28:59 03/27/20 20 03/30/2020 HPV DNA, genot ypes 16+18 , genit al HPV type 18/45 NOT DETECT ED normal The human papil lomav irus (HPV) Genot ype test is an FDA-a pprov ed in-vi tro diagn ostic ampli fied nucle ic acid test for the quali tativ e detec tion of E6/E7 viral mRNA of indep enden t HPV types 16 and 18/45 in cervi jackson speci mens. See https ://[employer]. [employer]/s ites/ defau lt/fi les/2 018-0 /- 31669 _002_ 01.pd f for [facility] daryn tejeda n. Not Available [facility] ([facility]) [address], [place], [address], 03/31/2020 20:28:59 03/27/20 20 03/29/2020 CT + NG DNA, PCR, unspe cifie d speci men trichomonas vaginalis, aptima (panther) NOT DETECT ED normal DNA testi ng perfo rmed by [employer] kathy Ampli ficat ion (TMA) These resul ts shoul d be inter prete d in light of all clini jackson and labor atory findi ngs. This assay is highl y accur ate, but rare false posit sindy and negat sindy resul ts may occur . Posit sindy resul ts in low preva lence popul ation s may requi re re-ev aluat ion. A negat sindy resul t does not precl ude a possi ble infec tion due to a speci men inade quacy or sampl ing error . Test perfo rmed by [facility], d/b/a [employer], [facility] [address], [place] [address] , Mckay Warren ra, DO, Labor atory Direc tor. Not Available [facility] ([facility]) [address] [place] [address] [address], [place], [address], 03/31/2020 20:29:00 03/27/20 20 03/29/2020 CT + NG DNA, PCR, unspe cifie d speci men neisseria gonorrhoeae, aptima NOT DETECT ED normal DNA testi ng perfo rmed by [employer] kathy Ampli ficat ion (TMA) These resul ts shoul d be inter prete d in light of all clini jackson and labor atory findi ngs. This assay is highl y accur ate, but rare false posit sindy and negat sindy resul ts may occur . Posit sindy resul ts in low preva lence popul ation s may requi re re-ev aluat ion. A negat sindy resul t does not precl ude a possi ble infec tion due to a speci men inade quacy or sampl ing error . Test perfo rmed by [facility] [employer], [employer], d/b/a [employer] [facility], [address] [place] [address], [place] [address] , Mckay Warren ra, DO, Labor atory Direc tor. Not Available [facility] ([facility]) [address] [place] [address], [place], [address], 03/31/2020 20:29:00 03/27/20 20 03/29/2020 CT + NG DNA, PCR, unspe cifie d speci men chlamydia trachomatis, aptima NOT DETECT ED normal DNA testi ng perfo rmed by [employer] kathy Ampli ficat ion (TMA) These resul ts shoul d be inter prete d in light of all clini jackson and labor atory findi ngs. This assay is highl y accur ate, but rare false posit sidny and negat sindy resul ts may occur . Posit sindy resul ts in low preva lence popul ation s may requi re re-ev aluat ion. A negat sindy resul t does not precl ude a possi ble infec tion due to a speci men inade quacy or sampl ing error . Test perfo rmed by [facility] [employer], [employer], d/b/a [employer], [address], [place] [address] , Mckay Warren ra, DO, Labor atory Direc tor. Not Available [facility] ([facility]) [address], [place], [address], 03/31/2020 20:29:00 03/27/20 20 03/30/2020 HPV DNA, high- risk HPV high risk DETECT ED abnormal The human papil lomav irus (HPV) High Risk Nasrin lugo is an FDA-a pprov ed in-vi tro ampli fied nucle ic acid test for the quali tativ e detec tion of E6/E7 viral mRNA. Resul ts shoul d be corre lated with patie nt prese ntati on, histo ry, cervi jackson cytol ogy and other clini jackson and labor atory findi ngs. See https ://Kalt[employer]/s ites/ defau lt/fi les/2 018-0 3/AW- 51541 _002_ 01.pd f for [facility] er infor nikhil n. Test perfo rmed by [facility] [employer], [employer], d/b/a [employer], [address], [place] [address] , Mckay Warren ra, DO, Labor atory Direc tor. Not Available [facility] ([facility]) [address], [place], [address], 03/31/2020 20:29:00 04/02/20 21 04/02/2021 IMAGE GUIDE D PAP AND HPV REGAR DLESS image guided Pap, HPV regardless of Pap result SEE RESULT S BELOW abnormal CASE REPOR T: Cytol ogy Gynec ologi jackson Repor t Case: [id number] Aut[address] donato hoyos Provi hyun: Malini mcmahon , Naye Motley cted: 04/02 1330 [employer] Order ing Locat ion: [place] Patho log[facility] Recei yessica: 04/03 0022 First Scree n: Kim Méndez , CT Patho logis t: Chito May MD Speci men: Nasrin luis Pap - Image d, Cervi x STATE MENT OF ADEQU ACY: Satis facto ry for evalu ation Trans forma tion zone compo nent prese nt FINAL DIAGN OSIS: Epith elial Cell Abnor malit y, Squam ous Cell: Atypi jackson Squam ous Cells of Undet ermin ed Signi fican ce (ASC- US). Elect jose r martins by Chito May MD on 04/09 at 3:07 PM ----- ----- ----- ----- ----- ----- ----- ----- ----- ----- ----- ----- ----- ----- ----- ----- ----- ---- HPV RESUL TS: HPV mRNA E6/E7 : Posit sindy - HPV mRNA Detec kathy HPV GENOT YPE 16 (YE) : Detec kathy HPV GENOT YPE 18/45 (YE) : Not Detec kathy NOTE: This high risk HPV mRNA assay detec ts fourt een high- risk HPV types (16, 18, 31, 33, 35, 39, 45, 51, 52, 56, 58, 59, 66, 68) witho ut diffe renti ation . This assay can diffe renti ate HPV 16 from HPV 18/45 , but does not diffe renti ate betwe en HPV 18 and HPV 45. A negat sindy HPV 16, 18/45 genot ype assay resul t does not exclu de the possi bilit y of cytol ogic abnor malit ies or of futur e or under lying CHECO 1, CHECO 3 or cance r. COMME NT: Note: This speci men was revie wed by a Cytot echno logis t and/o r Patho logis t (as indic ated in this repor t) after evalu ation using the Thinp rep Imagi ng Syste m. CLINI JACKSON INFOR MATIO N: Menst rual Statu s: LMP (if appli cable ): Clini jackson Histo ry/Pr eviou s Pap: Type of Neopl wendy (if appli cable ): Signi fican t Clini jackson Findi ngs: Other Histo ry: Hormo rukhsana (if appli cable ): SUGGLORY STED FOLLO W-UP: Follo w up as warra nted, based on curre nt guide lines and indiv idual patie nt consi derat ions. Not Available [facility] (Lab) [address], [place], [address], 04/09/2021 16:10:06 04/14/20 21 04/14/2021 SURGI JACKSON PATHO LOGY surgical pathology SEE RESULT S BELOW CASE REPOR T: Surgi jackson Patho logy Repor t Case: [id number] Autho donato hoyos Provi hyun: Whitney Anderson NP Colle cted: 04/14 1626 Order ing Locat ion: [place] Patho log[facility] Recei yessica: 04/15 0124 Patho logis t: Courtney Harrison MD Speci mens: A) - Cervi x, cervi jackson spira brush /cerv ical bx B) - Endoc ervix , ecc brush bx/ec c bx FINAL DIAGN OSIS: A. Cervi x, biops y: -Frag ments of unrem arkab le ectoc ervic al tissu e. B. Endoc ervix , curet tage: -Frag ments of unrem arkab le ectoc ervic al and endoc ervic al tissu e. Elect jose r anglin mariela d by Courtney Harrison MD on 04/15 at 4:37 PM ----- ----- ----- ----- ----- ----- ----- ----- ----- ----- ----- ----- ----- ----- ----- ----- ----- ---- CLINI JACKSON INFOR MATIO N: not provi ded MICRO SCOPI C DESCR IPTIO N: A micro scopi c exami natio n was perfo rmed. GROSS DESCR IPTIO N: A. Cervi x. The speci men is label ed with the patie nt's name, cami arroyoi cs and 1 . Recei yessica in forma sharla is a 0.5 x 0.5 x 0.1 cm aggre gate of mucus and minut e white -miles tissu e. The entir e speci men is submi tted in one casse tte. Gross ed by Quiana leyva B. Endoc ervix . The speci men is label ed with the patie nt's name, kyreeog raphi cs and 2 . Recei yessica in forma sharla is a 1.5 x 1.5 x 0.2 cm aggre gate of mucus and dark red tissu e. The entir e speci men is submi tted in one casse tte. Gross ed by Quiana leyva Not Available [facility] (Lab) [address], [place], [address], 04/15/2021 17:39:32 04/14/20 21 04/14/2021 pregn regan test, urine HCG negati ve Not Available [place] [address], [place], [address], 04/14/2021 12:55:28 Result Notes None recorded. Problems Name Problem SNOMED Code Status Onset Date Resolution Date Notes Provider Name and Address Organization Details Recorded Time Routine antenata l care Completed 201404/01/2021 Supervis ion of other normal pregnanc y;Practi ce ID: 0001 Abril garcia, [facility] 17:17:59 anatomy study Completed 201404/01/2021 [facility] SURVEY;P sol ID: 0001 Abril garcia, [facility] 17:17:25 Known OR suspecte d abnormal ity affectin g manageme nt of mother Completed 201404/01/2021 Other known or suspecte d abnormal ity, not elsewher e classifi ed, affectin g manageme nt of mother, antepart um conditio n or complica tion;Pra ctice ID: 0001 Abril garcia, [facility] 17:17:32 Primigra sharmila [id number] Completed 201404/01/2021 Supervis ion of normal first pregnanc y;Practi ce ID: 0001 [facility]il [facility], [facility] 17:17:54 Carbuncl e of skin and/or subcutan eous tissue [id number] Completed 201204/01/2021 Carbuncl e and furuncle of unspecif ied site;Pra ctice ID: 0001 [facility]il [facility], [facility] 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 17:17:38 Postpart um care Completed 201204/01/2021 Routine postpart um follow-u p;Shai ce ID: 0001 Abril garcia, [facility] 17:17:50 Speciali zed medical examinat ion Completed 201204/01/2021 Routine gynecolo gical examinat ion;Prac dagoberto ID: 0001 Abril [facility] 17:18:09 Screenin g for malignan t neoplasm of cervix Completed 201204/01/2021 Pap Smear;Pr actice ID: 0001 [facility] 17:18:00 Obesity [id number] Completed 201304/01/2021 Obesity, unspecif ied;Prac dagoberto ID: 0001 Abril [facility] 17:17:44 Speciali zed medical examinat ion Completed 201304/01/2021 Other specifie d chlamydi al diseases ;Practic e ID: 0001 Abril [facility] 17:18:10 Venereal disease screenin g Completed 201304/01/2021 Screenin g examinat ion for venereal disease; Practice ID: 0001 Abril [facility] 17:18:15 Amenorrh ea [id number] Completed 201404/01/2021 AMENORRH EA;Pract ice ID: 0001 Abril [facility] 17:16:59 Pregnanc y test positive [id number] Completed 201404/01/2021 Positive Pregnanc y Test;Pra ctice ID: 0001 Abril [facility] 17:17:53 Mild hypereme sis-not delivere d [id number] Completed 201404/01/2021 Hypereme sis gravidar um, antepart um Mild;Pra ctice ID: 0001 Abril [facility] 17:17:41 Nausea and vomiting [id number] Completed 201404/01/2021 Nausea with vomiting ;Practic e ID: 0001 Abril garcia [facility] 17:17:42 Uses combined oral contrace ption [id number] Completed 201704/01/2021 Encounte r for surveill ance of contrace ptive pills;Pr actice ID: 0001 Abril garcia [facility] 17:17:[address] Concept Completed 201704/01/2021 Anxiety disorder , unspecif ied;Prac dagoberto ID: 0001 Abril [facility] 17:18:[address] Concept Completed 201704/01/2021 Encntr for evp operations exam (general ) (routine ) w/o abn findings ;Practic e ID: 0001 Abril [facility] 17:18:07 Acute vaginiti s [id number] Completed 201704/01/2021 Acute vaginiti s;Practi ce ID: 0001 Abril [facility] 17:16:58 Syphilis test finding [id number] Completed 201704/01/2021 Encntr screen for infectio ns w sexl mode of transmis s;Practi ce ID: 0001 Abril [facility] 17:18:12 Finding of pattern of menstrua l cycle Completed 201704/01/2021 Other specifie d irregula r menstrua tion;Pra ctice ID: 0001 [facility] 17:17:27 Pregnanc y test negative [id number] Completed 201704/01/2021 Encounte r for pregnanc y test, result negative ;Practic e ID: 0001 Abril garcia [facility] 11/04/202 1 17:17:51 Abnormal uterine bleeding [id number] 100 Completed 201704/01/2021 Other specifie d abnormal uterine and vaginal bleeding ;Practic e ID: 0001 Abril [facility] 17:16:56 Insertio n of intraute rine contrace ptive device Completed 201804/01/2021 Encounte r for insertio n of intraute rine contrace ptive device;P ractice ID: 0001 Abril [facility] 17:17:31 Contrace ptive sheath status [id number] Completed 201804/01/2021 Encounte r for routine checking of intraute rine contrace p dev;Prac dagoberto ID: 0001 Abril [facility] 17:17:13 Postcoit al finding [id number] Completed 201804/01/2021 Postcoit al and contact bleeding ;Practic e ID: 0001 Abril [facility] 17:17:48 Excessiv e growth affectin g manageme nt of mother [id number] Completed 201404/01/2021 GROWTH LARGE LGA;Prac dagoberto ID: 0001 Abril [facility] 17:17:22 Dietary manageme nt surveill ance Completed 201404/01/2021 Dietary surveill ance and counseli ng;Pract ice ID: 0001 Abril [facility] 17:17:17 Amniotic fluid examinat ion abnormal [id number] Completed 201404/01/2021 ABN FIND-AMN IOTIC FLUID;Pr actice ID: 0001 Abril [facility] 17:17:01 Single live [id number] Completed 201404/01/2021 DELIVER- SINGLE LIVEBORN ;Practic e ID: 0001 Abril garcia [facility] 17:18:02 Carbuncl e of trunk [id number] Completed 201404/01/2021 CARBUNCL E OF TRUNK;Pr actice ID: 0001 Abril garcia, [facility] 17:17:10 Carbuncl e of skin and/or subcutan eous tissue [id number] Completed 201404/01/2021 Carbuncl e and furuncle of other specifie d sites;Pr actice ID: 0001 Abril garcia [facility] 17:17:07 Mastitis associat ed with lactatio n [id number] Completed 201404/01/2021 Nonpurul ent mastitis associat ed with the puerperi um;Pract ice ID: 0001 [facility] 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 17:17:29 Oligohyd ramnios with antenata l problem [id number] Completed 201204/01/2021 Oligohyd ramnios, antepart um;Recor ded Elsewher e: No Locat ion: [facility] S ource: EHR Dough Panner art: N Practi ce ID: 0001 Cristobal lable Time: 08:45:00 AM [facility] 17:17:[address] Concept Completed 201604/01/2021 Encntr for general adult medical exam w/o abnormal findings ;Recorde d Elsewher e: No Locat ion: [facility] S ource: EHR Dough Panner art: N Practi ce ID: 0001 Cristobal lable Time: 09:00:00 AM [facility] 17:18:05 Removal of intraute rine device Completed 201104/01/2021 REMOVAL OF IUD;Prac dagoberto ID: 0001 Abril [facility] 17:17:57 Transien t hyperten clarisa of pregnanc y - not delivere d [id number] Completed 201204/01/2021 Antepart um transien t hyperten clarisa;Pra ctice ID: 0001 Abril [facility] 17:18:13 Benign essentia l hyperten clarisa complica ting pregnanc y, childbir th and the puerperi um - not delivere d [id number] Completed 201204/01/2021 Hyperten clarisa During Pregnanc y;Practi ce ID: 0001 Abril [facility] 17:17:03 Labor and delivery complica kathy by heart rate anomaly [id number] Completed 201204/01/2021 HEART RATE NON REASSURI NG;Pract ice ID: 0001 Abril [facility] 17:17:34 Delivery normal [id number] Completed 201204/01/2021 Normal delivery ;Practic e ID: 0001 Abril [facility] 17:17:15 Proteinu kristen [id number] Completed 201204/01/2021 Proteinu kristen;Prac dagoberto ID: 0001 Abril [facility] 17:17:56 Family planning surveill ance Completed 201104/01/2021 Contrace ptive surveill ance, unspecif ied;Zan rded Elsewher e: No Locat ion: [facility] S ource: EHR Dough Panner art: N Practi ce ID: 0001 Cristobal lable Time: 08:15:00 AM [facility] 17:17:24 Evaluati on finding Completed 201704/01/2021 Unsp abnormal cytolog findings in specmn from cervix uteri;Re corded Elsewher e: No Locat ion: [facility] S ource: EHR Dough Panner art: N Practi ce ID: 0001 Cristobal lable Time: 09:30:00 AM Abril [facility] 17:17:20 Body mass index 30+ - obesity [id number] Completed 201704/01/2021 Body mass index (BMI) 45.0-49. 9, adult;Re corded Elsewher e: No Locat ion: [facility] S ource: EHR Dough Panner art: N Practi ce ID: [id number] Cristobal lable Time: 09:30:00 AM Abril [facility] 1 17:17:05 Educatio n Completed 201604/01/2021 Encounte r for other general counseli ng and advice on contrace ption;Re corded Elsewher e: No Locat ion: [facility] S ource: EHR Dough Panner art: N Practi ce ID: [id number] Cristobal lable Time: 09:00:00 AM [facility]il [facility] 17:17:18 Notes:I Problem Notes None recorded. Procedures Surgical History Date Name Laterality Status Provider Name and Address Organization Details Recorded Time 04/14/20 21 IUD Removal completed Whitney Agustin CNM [address], [place], [address], [facility] 04/14/2021 13:31:07 04/14/20 21 Colposcopy completed Whitney Agustin CNM [address], [place], [address], [facility] 04/14/2021 13:30:59 04/14/20 21 Colposcopy completed [facility] 04/14/2021 12:49:24 04/14/20 21 Colposcopy completed [facility] 04/14/2021 12:55:14 04/02/20 21 Date of Last Pap Smear completed [facility] 04/14/2021 12:46:43 12/22/19 21 Bariatric Surgery completed [facility] 04/14/2021 12:35:13 05/10/20 18 endometrial biopsy completed [facility] 04/14/2021 12:51:53 05/29/19 08 extraction of wisdom tooth completed [facility] 04/14/2021 12:35:48 05/29/19 06 extraction of wisdom tooth completed [facility] 04/14/2021 12:35:28 Imaging Results None recorded. Procedure Notes None recorded. Medical Equipment None Reported. Allergies Allergen ID Allergen Name Allergen Category Reaction Reaction Severity Criticality Documentation Date Start Date Code Code System Note Provider Name and Address Organization Details Recorded Time 1047 cefaclor medicatio n Not available Not available Not available 03/27/20206 RxNorm Yakelin garcia [facility] 0 12:14:45 2550 ciproflox acin medicatio n Not available Not available Not available 03/27/2020 2551 RxNorm Yakelin garcia [facility] 0 12:14:52 Medications Name Sig Start Date Stop Date Status Note LastModified by Organization Details LastModified Time nizoral a-d sha 1% 03/27 completed Not Available Not Available Not Available nizoral a-d 1% shampoo 4 oz SHAMPOO D LEAVE ON FOR 5 TO 10 MINUTES THEN RINSE OUT 03/27 completed Not Available Not Available Not Available amoxicill in 500 mg capsule 03/27 completed Not Available Not Available Not Available Mirena 21 mcg/24 hr (up to 8 years) 52 mg intrauter ine device Take by intraute rine route. 04/14 completed Not Available Not Available Not Available dicloxaci llin 500 mg capsule take 1 capsule by oral route every 6 hours 1 hour before a meal or 2 hours after a meal 12/06 completed Prescrib ed Elsewher e: No Locat ion: [facility] odify By: anahi zepeda DateTime : 03/24/20 15 04:45:00 PM Not Available Not Available Not Available ketoconaz ole 2 % shampoo APPLY TOPICALL Y TO THE SCALP 1 TO 2 TIMES EVERY WEEK active Not Available Not Available No t Available atorvasta tin 10 mg tablet take 1 tablet by oral route every day active Not Available Not Available No t Available azithromy checo 250 mg tablet ZPK 03/27 completed Not Available Not Available Not Available fluconazo le 150 mg tablet take 1 tablet by oral route once 06/28 completed Prescrib ed Elsewher e: No Locat ion: [facility] odify By: pricilla todduntfrancesco DateTime : 04/27/20 18 03:15:00 PM Not Available Not Available Not Available ibuprofen 200 mg capsule take 1 capsule by oral route every 6 hours as needed 01/12 completed Prescrib ed Elsewher e: Yes [facility] By: fauzia todduntfrancesco DateTime : 08/08/19 12 08:15:00 AM Not Available Not Available Not Available prednison e 20 mg tablet TK 2 TS PO D FOR 5 DAYS. 03/27 completed Not Available Not Available Not Available sertralin e 100 mg tablet TAKE 1 TABLET BY MOUTH EVERY DAY 2021 active Not Available Not Available Not Avai lable sulfameth oxazole 800 mg-trimet hoprim 160 mg tablet TK 1 T PO BID FOR 10 DAYS 03/27 completed Not Available Not Available Not Available Reglan 10 mg tablet take 1 tablet by oral route every 8 hours as needed for nausea 01/19 completed Prescrib ed Elsewher e: No [facility] By: pricilla toddunter DateTime : 06/06/19 10:15:00 AM Not Available Not Available Not Available amoxicill in 875 mg tablet TAKE 1 TABLET BY MOUTH TWICE DAILY 04/14 completed Not Available Not Available Not Available Metrogel Vaginal 0.75 % (37.5 mg/5 gram) insert 1 applicat orful by vaginal route every day at bedtime for 5 nights 06/28 completed Prescrib ed Elsewher e: No [facility] By: pricilla toddunter DateTime : 05/03/20 18 11:51:48 AM Not Available Not Available Not Available Zoloft 50 mg tablet TAKE ONE TABLET BY MOUTH DAILY 03/16 completed Prescrib ed Elsewher e: No [facility]at ion: [facility] odify By: smcaley Lawson zepeda DateTime : 02/16/20 17 03:43:49 PM Not Available Not Available Not Available metronida zole 0.75 % topical cream APPLY TOPICALL Y TO FACE TWICE DAILY 04/01 completed Not Available Not Available Not Available methylpre dnisolone 4 mg tablets in a dose pack FOLLOW PACKAGE DIRECTIO NS 04/01 completed Not Available Not Available Not Available Vitamin D2 1,250 mcg (50,000 unit) capsule take 1 capsule by oral route every week 01/19 completed Prescrib ed Elsewher e: No Locat ion: [facility] odify By: amrichard Hodge ncounter DateTime : 10/25/19 15 09:47:19 AM Not Available Not Available Not Available norethind dale (contrace ptive) 0.35 mg tablet TAKE ONE TABLET BY MOUTH DAILY 06/15 completed Prescrib ed Elsewher e: No Locat ion: [facility] odify By: anahi zepeda DateTime : 01/11/20 17 08:23:46 AM Not Available Not Available Not Available ondansetr on 4 mg disintegr ating tablet 04/02 completed Not Available Not Available Not Available cholecalc iferol (vitamin D3) 10 mcg (400 unit) capsule 04/02 completed Prescrib ed Elsewher e: Yes Loca tion: [facility] odify By: colette Hodge ncounter DateTime : 03/07/20 19 08:30:00 AM Not Available Not Available Not Available Lexapro 10 mg tablet take 1 tablet (10MG) by oral route every day 01/14 completed Prescrib ed Elsewher e: No Locat ion: [facility] odify By: lizy alonzo DateTime : 09/01/19 13 03:30:00 PM Not Available Not Available Not Available Mononessa (28) 0.25 mg-35 mcg tablet take 1 tablet by oral route every day 10/11 completed Prescrib ed Elsewher e: No Locat ion: [facility] odify By: mayank zeepda DateTime : 06/05/19 19 01:46:56 PM Not Available Not Available Not Available Lexapro 5 mg/5 mL oral solution take 10 millilit er by oral route every day 01/19 completed Prescrib ed Elsewher e: Yes Loca tion: [facility] odify By: pricilla Hodge ncounter DateTime : 01/22/20 14 10:15:00 AM Not Available Not Available Not Available Antacid 200 mg-200 mg-20 mg/5 mL oral suspensio n take 10 millilit er by oral route between meals and at bedtime as needed 08/07 completed Prescrib ed Elsewher e: Yes Loca tion: [facility] odify By: arjun todduntfrancesco DateTime : 03/09/20 11 02:30:00 PM Not Available Not Available Not Available hydrocodo ne 7.5 mg-acetam inophen 325 mg/15 mL oral solution 04/02 completed Not Available Not Available Not Available cholecalc iferol (vitamin D3) 250 mcg (10,000 unit) capsule TK ONE C PO D 03/27 completed Not Available Not Available Not Available Vitamin D active Not Available Not Alice ilable Not Available atenolol 04/02 completed Not Available Not Available Not Available ProAir HFA 90 mcg/actua tion aerosol inhaler inhale 2 puff by inhalati on route every 4 - 6 hours as needed 04/14 completed Prescrib ed Elsewher e: No Locat ion: [facility] odify By: mariela maya DateTime : 10/30/19 15 02:30:00 PM Not Available Not Available Not Available phentermi ne HCl (bulk) 100 % powder 02/02 completed Prescrib ed Elsewher e: Yes Loca tion: [facility] odify By: mayank Pathak r DateTime : 01/03/20 17 10:00:00 AM Not Available Not Available Not Available Triveen-D uo DHA 29 mg-1 mg-400 mg oral pack take 2 by Oral route once for 30 days 06/28 completed Prescrib ed Elsewher e: No Locat ion: [facility] odify By: fauzia toddunter DateTime : 05/30/19 15 09:30:00 AM Not Available Not Available Not Available Virtussin AC 10 mg-100 mg/5 mL oral liquid TK 5 ML PO Q 4 TO 6 H PRF COUGH 03/27 completed Not Available Not Available Not Available Contrave 8 mg-90 mg tablet,ex tended release TK 1 T PO BID 03/27 completed Not Available Not Available Not Available Maximum D3 325 mcg (13,000 unit) capsule TAKE ONE CAPSULE BY MOUTH ONCE A WEEK 04/14 completed Not Available Not Available Not Available COVID-19 test specimen collectio n TEST DIRECTED 04/02 completed Not Available Not Available Not Available Flucelvax Quad (PF) 60 mcg (15 mcg x 4)/0.5 mL IM syringe ADM 0.5ML IM UTD 03/27 completed Not Available Not Available Not Available Vitals Date Recorded Body height Body mass index (BMI) Body weight Systolic blood pressure Diastolic blood pressure Provider Name and Address Organization Details Last Updated DateTime 04/02/2021 160.02 cm 42.7 kg/m2 831178.7 6 g 119 mm[Hg] 76 mm[Hg] Abril Greenfield [facility] 1 10:16:14 Date Recorded Body height Body mass index (BMI) Body weight Systolic blood pressure Diastolic blood pressure Provider Name and Address Organization Details Last Updated DateTime 04/14/2021 160.02 cm 42.2 kg/m2 209392.9 8 g 111 mm[Hg] 78 mm[Hg] Ana Salinas [facility] 1 12:27:31 Date Recorded Body height Body mass index (BMI) Body weight Systolic blood pressure Diastolic blood pressure Provider Name and Address Organization Details Last Updated DateTime 03/27/2020 160.02 cm 50 kg/m2 224142.0 5 g 121 mm[Hg] 82 mm[Hg] Yakelin Torres [facility] 0 12:24:10 Social History Question Answer Notes LastModified by Organizat ion Details LastModified Time Tobacco Smoking Status Never Smoker Ana Salinas [facility] 04/14/2021 12:27:47 Do You Have An Advance Directive? No Information not available 04/02/2021 What Is Your Level Of Alcohol Consumption? Occasional Information not available 04/02/2021 How Many Years Have You Consumed Alcohol? 13 Information not available 04/02/2021 Are You Blind Or Do You Have Difficulty Seeing? No Information not available 04/01/2021 What Is Your Level Of Caffeine Consumption? Occasional Information not available 04/01/2021 How Much Tobacco Do You Chew? None [email or web address] Information not available 04/14/2021 In The 14 Days Before Symptom Onset, Have You Had Close Contact With A Laboratory-confir med COVID-19 While That Case Was Ill? No Information not available 04/02/2021 In The 14 Days Before Symptom Onset, Have You Had Close Contact With A Person Who Is Under Investigation For COVID-19 While That Person Was Ill? No Information not available 04/02/2021 Have You Been To An Area Known To Be High Risk For COVID-19? No Information not available 04/02/2021 Are You Deaf Or Do You Have Serious Difficulty Hearing? No Information not available 04/01/2021 What Type Of Diet Are You Following? REGULAR Information not available 04/01/2021 What Is The Highest Grade Or Level Of School You Have Completed Or The Highest Degree You Have Received? 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 Yes Information not available 04/02/2021 Do You Use Protection During Sex? No Information not available 04/02/2021 Do You Use Your Seat Belt Or Car Seat Routinely? Yes Information not available 04/01/2021 Do You Have Smoke And Carbon Monoxide Detectors In Your Home? Yes Information not available 04/01/2021 How Much Tobacco Do You Smoke? No Information not available 04/02/2021 Do You Feel Stressed (tense, Restless, Nervous, Or Anxious, Or Unable To Sleep At Night)? [id number] Information not available 04/01/2021 Do You Use Any Illicit Or Recreational Drugs? No Information not available 04/01/2021 Do You Use Sunscreen Routinely? Yes Information not available 04/01/2021 Have You Used IV Drugs? No Information not available 04/02/2021 Sex: Unknown Functional Status Question Answer Note LastModified by Organization D etails LastModified Time Are you able to walk? YESWOREST Information not available 04/01/2021 What is your exercise level? Moderate Information not available 04/01/2021 Mental Status None recorded. Family History Relationship Description Onset Age of this Age Resolved Age Notes LastModified by Organization Details LastModified Time Mother Hypertensive disorder [email or web address] Not available 2019 12:16:49 Father Hypertensive disorder [email or web address] Not available 2019 12:16:49 Paternal Grandmother Diabetes mellitus [email or web address] Not available 2019 12:17:02 Paternal Grandmother Carcinoma in situ of breast [email or web address] Not available 2020 12:08:18 Paternal Aunt Diabetes mellitus [email or web address] Not available 2019 12:17:02 Medical History Condition Response Allergies (Food, seasonal, environmental ) Y Other N Drug/Latex Allergies/Reactions Y Breast Cancer N Blood Transfusion N Lung Disease N Dermatologic Disorders Y Defects or Inherited Disease N Breast Problem N Gestational Diabetes N Hematologic disorders N Anesthesia Complications N History of STI Y Deep Vein Thrombosis N Polycystic ovary syndrome N Anxiety Disorder N Autoimmune disease N Arthritis N Polyps N Infertility N History of abnormal pap Y Acid Reflux (GERD) N Cancer N Varicosities N Stroke N Neurologic/Epilepsy N Endometriosis N High Cholesterol Y Headaches N Fibromyalgia N Kidney Disease N Heart Problems N Thyroid Problems N Kidney or Bladder Problems N GI Problems Y Eating Disorder N Anemia N Art (IVF or FET) N Psychiatric Illness N Ovarian Cancer N Diabetes N Pulmonary (TB, Asthma) N Hepatitis/Liver Disease N No Past Medical History N Eczema N Urinary Tract Infection N Abuse/Domestic Violence N Asthma Y Trauma/Violence N Depression/ depression N Heart Disease N Pre-Eclampsia N Hypertension N Osteoporosis N Thrombophilias N Gynecological History Statement/Question Response Abnormal Pap Yes Date of Last Mammogram On BCP's at Conception? N N STIs/STDs Y HPV Vaccine N Colposcopy 04/14/2021 12 Current Control Method None Age at First Child 26 Date of control 05/29/2018 Sexually Active? Y Age of first menstrual cycle 14 Date of Last Pap Smear 04/02/2021 Sexual Problems? N LMP Unknown N 04/13/2021 Obstetrics History GPAL:G 2 P 0 0 0 2 Type Value Living 2 Total 2 Past Encounters Encounter ID Performer Location Encounter Start Date Encounter Closed Date Diagnosis/Indication Diagnosis SNOMED-CT Code Diagnosis ICD10 Code Diagnosis Note [id number] [facility] [address] [address] 03/27/2020 12:12:17 03/27/2020 15:46:44 Gynecologic examination 37521451 Z01.419 Take Calcium with Vitamin D 1200mg daily if not receiving in daily diet. It is strongly advised to have an annual flu shot and up can obtain at most pharmacies . If you have not had a TDap shot in the last 10 years you should obtain one as well. Discussed with patient & provided with informatio n regarding Gardisil vaccine to prevent the 4 strains for HPV that cause cervical cancer if under age 26. Encourage safe sexual practices, to use condoms and limit partners if not already in a monogamous relationsh ip. Do monthly self breast exams. Have mammogram yearly or every other year depending on family history. BRCA testing is now available for patients with strong genetic history of female cancer. If interested contact the office. Engage in daily exercise of low impact aerobic exercise 45-60 minutes 4-5 times weekly. Avoid tobacco and illicit drugs as well as using moderation with alcohol intake less than 1-2 8 oz beverages daily. This lifestyle behavior pattern will lead to less health conditions and longer life span. If BMI greater than 25 weight watchers or dietary consult advised. Patient received above instructio ns, and questions have been answered. If you have any questions please call or respond to this email. Patient was made aware of the patient portal and may obtain a paper copy of today's plan if desired. Pap/hpv updated Declined need std screening No issues or concerns this year. : IUD placed 2019 Anxiety 07988146 F41.9 Doing well on zoloft. Wishes to continue. RF's sent [id number] Stefany [place] [facility] [address] [address] 04/02/2021 10:05:28 04/02/2021 11:08:13 Gynecologic examination 52014127 Z01.419 Take Calcium with Vitamin D 1200mg daily if not receiving in daily diet. It is strongly advised to have an annual flu shot and up can obtain at most pharmacies . If you have not had a TDap shot in the last 10 years you should obtain one as well. Discussed with patient & provided with informatio n regarding Gardisil vaccine to prevent the 4 strains for HPV that cause cervical cancer if under age 26. Encourage safe sexual practices, to use condoms and limit partners if not already in a monogamous relationsh ip. Do monthly self breast exams. Have mammogram yearly or every other year depending on family history. BRCA testing is now available for patients with strong genetic history of female cancer. If interested contact the office. Engage in daily exercise of low impact aerobic exercise 45-60 minutes 4-5 times weekly. Avoid tobacco and illicit drugs as well as using moderation with alcohol intake less than 1-2 8 oz beverages daily. This lifestyle behavior pattern will lead to less health conditions and longer life span. If BMI greater than 25 weight watchers or dietary consult advised. Patient received above instructio ns, and questions have been answered. If you have any questions please call or respond to this email. Patient was made aware of the patient portal and may obtain a paper copy of today's plan if desired. Pap/hpv updated (last year abn +HPV) Declined need std screening No issues or concerns this year. BC: IUD placed 2019--want s to have it removed to try & acheive . Will schedule. Generalize d anxiety disorder 13388598 F41.1 Stable & doing well on this medication .Neg suicidal ideations/ thoughts of self harm.Appro priate to continue.R F sent x yr [id number] Whitney Agustin, [facility] [address] [address] 04/14/2021 12:08:09 04/14/2021 14:21:54 Removal of intrauterine device 38786232 Z30.432 Atypical s quamous cells of undetermined significance on cervical Papanicolaou smear 881471226 R87.610 Human allison llomavirus deoxyribonucleic acid detected, high risk on cervical specimen 671536072 R87.810 Health Concerns Section Related Observation LastModified by Organization Detai ls LastModified Time None Recorded Concern Status LastModified by Organization Details LastModified Time None Recorded Advance Directives Directive N: Payers Encounter Date Sequence Insurance Name Policy Number Policy Vásquez Covered Member ID Vásquez Member ID Guarantor Name 03/27/2020 1 [employer] [id number] Whitney Falcon [id number] Whitney E Yuval ([place]anned[place]) 04/02/2021 1 [place] [id number] Whitney Falcon [id number] Whitney E Yuval ([place]anned[place]) 04/14/2021 1 [place] [id number] Whitney Falcon [id number] Whitney Hodge Yuval (Terrie) Notes Date Note Type Note Provider Name and Address Organization Details Recorded Time 03/27/2020 text/html Annual GYNReport ed bypatient.History:no gynecologic complaints Menstrual cycle:Normal menses Urinary symptoms:No hematuria; No incontinence Vulva:No genital lesion Vagina:Normal vaginal discharge Breast:No breast pain; No breast lump; No nipple discharge Current Contraception:Satisf ied with current contraception; Monogamous relationship; Intrauterine device (iud) Sexual complaints:No sexual complaints; No pain during intercourse; Normal libido Menopausal Symptoms:No menopausal symptoms; Normal vaginal lubrication Psychological symptoms:No depression; No anxiety; No PMDD Preventive measures:Encourage self breast examination; Encourage regular exercise; Encourage no tobacco use; Encourage regular mammograms starting age 40; Followed with Q3 year pap smear and high risk HPV typing [facility] [address], [place], [address], [facility] 03/27/2020 13:46:26 04/02/2021 text/html Annual GYNReport ed bypatient.History:no gynecologic complaints Menstrual cycle:Normal menses (Amenorrheic on IUD) Urinary symptoms:No hematuria; No incontinence Vulva:No genital lesion Vagina:Normal vaginal discharge Breast:No breast pain; No breast lump; No nipple discharge Current Contraception:Satisf ied with current contraception; Monogamous relationship; Intrauterine device (iud) Sexual complaints:No sexual complaints; No pain during intercourse; Normal libido Menopausal Symptoms:No menopausal symptoms; Normal vaginal lubrication Psychological symptoms:No depression; No anxiety; No PMDD Preventive measures:Encourage self breast examination; Encourage regular exercise; Encourage no tobacco use; Encourage regular mammograms starting age 40; History of abnormal pap smear/cervical dysplasia NIA Izquierdo [address], [place], [address], [facility] 04/02/2021 10:43:06 04/14/2021 text/html Patient presents for IUD removal and colpo reviewed se risks benefits including bleeding and infection UPT neg consent signed. pt would like another pregnancyascus and +hpv 16 Whitney Agustin CNM [address], [place], [address], [facility] 04/14/2021 13:31:46 OBGyn Episode Ob Episode Information Episode Created Date Number of Fetuses Patient Bloodtype Patient rh Status Prepregnancy Weight lbs Domestic Partner Domestic Partner Phone Father Name Sack Cleaning Hand Status 03/27/20 20 1 CLOSED Fetus Data First Name Last Name Admitted to NICU Weight (g) Sex Living Outcome Pediatric Complications Fetus ID Race Codes Race Delivery Type 2976.47 0704 M Prematur e [id number] Vaginal Delivery [place] Calculation Initial [place] Date Initial Exam Date Initial Exam Provider Initial Ultrasound Date Last Menstrual Period Date Ultra Sound Weeks Gestation 0 Eighteen To Twenty Week [place] Update Ultra Sound Date Fundal Height At Umbil Quickening Date Ultra Sound Latest Weeks Gestation Final [place] Confirmed By Final [place] Confirmed Date Final [place] Date Ultra Sound Latest Days Gestation 0 0 Menstrual History Last Menstrual Date Menses Monthly On Bcp Conception Prior Menses Frequency Hcg Plus Date Menarche Onset Age Delivery Information Delivery Date Delivery Type Labor Anesthesia Weeks Gestation Incision Type Labor Labor Length Hrs Delivered By Post Complications Tubal Sterilization Discharge Date Comments 3 36.5 true Discharge Information Feeding Method Contraceptive Method Maternal HG B and HCT Levels Ob Episode Information Episode Created Date Number of Fetuses Patient Bloodtype Patient rh Status Prepregnancy Weight lbs Domestic Partner Domestic Partner Phone Father Name Sack Cleaning Hand Status 03/27/20 1 CLOSED Fetus Data First Name Last Name Admitted to NICU Weight (g) Sex Living Outcome Pediatric Complications Fetus ID Race Codes Race Delivery Type 3826.95 5704 F Full Term [id number] Vaginal Delivery [place] Calculation Initial [place] Date Initial Exam Date Initial Exam Provider Initial Ultrasound Date Last Menstrual Period Date Ultra Sound Weeks Gestation 0 Eighteen To Twenty Week [place] Update Ultra Sound Date Fundal Height At Umbil Quickening Date Ultra Sound Latest Weeks Gestation Final [place] Confirmed By Final [place] Confirmed Date Final [place] Date Ultra Sound Latest Days Gestation 0 0 Menstrual History Last Menstrual Date Menses Monthly On Bcp Conception Prior Menses Frequency Hcg Plus Date Menarche Onset Age Delivery Information Delivery Date Delivery Type Labor Anesthesia Weeks Gestation Incision Type Labor Labor Length Hrs Delivered By Post Complications Tubal Sterilization Discharge Date Comments 5 39 Discharge Information Feeding Method Contraceptive Method Maternal HG B and HCT Levels
== END 2024-07-09 14:47 | disposition home or self-care (01) ==
PROVIDERS: Emergency Provider Nurse Practitioner; PCP Nurse Practitioner Family
DX: R19.7 Diarrhea, unspecified (principal)
CPT/HCPCS: 99213; G0463